=== PATIENT | female | born 1965 | race African-American/Black ===

== ENCOUNTER 2023-06-18 16:01 | Emergency (ER) | payer OTHER, SELFPAY ==
[2023-06-18 16:15] VITALS: BP 129/89; PULSE 86; RESP 20; TEMP 37.2; O2SAT 97; BMI 34.5
[2023-06-18 16:19] VITALS: BMI 34.5
--- NOTE | 2023-06-18 16:20 | XR_ITS ---
PROCEDURE INFORMATION: Exam: XR Left Foot Exam date and time: 06/18/2023 4:29 PM Age: 58 years old Clinical indication: Pain; Foot; Left; Additional info: Knot to heel area TECHNIQUE: Imaging protocol: Radiologic exam of the left foot. Views: 3 or more views. COMPARISON: No relevant prior studies available. FINDINGS: Bones/joints: Normal. Soft tissues: Normal. IMPRESSION: No acute findings.
--- NOTE | 2023-06-18 16:20 | XR_ITS ---
PROCEDURE INFORMATION: Exam: XR Right Foot Exam date and time: 06/18/2023 4:25 PM Age: 58 years old Clinical indication: Pain; Foot; Right TECHNIQUE: Imaging protocol: Radiologic exam of the right foot. Views: 3 or more views. COMPARISON: No relevant prior studies available. FINDINGS: Bones/joints: Normal. Soft tissues: Normal. IMPRESSION: No acute findings.
--- NOTE | 2023-06-18 16:25 | EXP.UTC ---
Discharge Plan Disposition Patient Disposition: Home, Self-Care Condition: Good Prescriptions Prescriptions: New methylprednisolone 4 mg Tablets,Dose Pack 4 mg PO DIRECTED Qty: 21 0RF Referrals Follow up/Referrals: Anca Cintron MD [Primary Care Provider] - See instructions My Camara DPM [Staff Physician] - See instructions Activity Restrictions/Add. Instructions Additional Instructions/Restrictions: Rest the extremity, Elevate the extremity as tolerated while you are resting. Take the medication as directed. Don't start the methylprednisone pack (steroids) until tomorrow since you had the shots here today. Follow up with Dr. Camara (podiatry). I put in a referral but you need to call her office and schedule an appointment. Follow up with your regular doctor. GO TO THE ER FOR ANY WORSENING SYMPTOMS Clinical Impressions Clinical Impression: Foot pain, right Stand Alone Forms Stand Alone Forms: Work/School Release Instructions Patient Instructions: DI for Foot Pain, How to Use a Walking Boot Discharge ED Provider: Terry Miranda [facility] General Stated complaint: right foot pain, left foot nodgul Time Seen by Provider: 06/18/23 16:25 History of Present Illness Provider Complaint: She states that she has had right foot pain for the past 3 days. She denies any injury. She states that walking and bearing weight on the foot makes her pain worse. Related Data Previous Rx's Medication Instructions Recorded methylprednisolone 4 mg tablets in 4 mg PO DIRECTED #21 tabs 06/18/23 a dose pack Allergies Allergy/AdvReac Type Severity Reaction Status Date / Time promethazine [From Phenergan] Allergy Verified 06/18/23 16:26 [facility] Disclaimer: The information contained in this section may have been updated after the patient was seen, as this information can be updated by other users. Social History Smoking Status: Never smoker alcohol intake: never current occupational status: employed Travel in the last 8 weeks: None ROS Obtained: Yes All systems reviewed & no additional complaints except as documented Constitutional Constitutional: Denies chills and Denies fever(s) Eyes Eyes: Denies eye discharge ENT Ears, Nose, Mouth, and Throat: Denies dizziness, Denies otalgia and Denies sore throat Cardiovascular Cardiovascular: Denies chest pain Respiratory Respiratory: Denies shortness of breath, Denies chest congestion, Denies cough, Denies stridor and Denies wheezing Gastrointestinal Gastrointestingal: Denies nausea or vomiting Musculoskeletal Musculoskeletal: Reports as per HPI Integumentary/Breasts Skin/Breast: Denies rash Neurologic Neurologic: Denies dizziness and Denies paresthesias Allergic/Immunologic Allergic/Immunologic: Denies wheezing Physical Exam General General appearance: alert and in no apparent distress Head Head exam: atraumatic, normocephalic and normal inspection Eye Eye exam: Present normal appearance, PERRL and EOMI ENT ENT exam: Present normal exam, normal oropharynx, mucous membranes moist, TM's normal bilaterally and normal external ear exam Neck Neck exam: Present normal inspection, full ROM and trachea midline; Absent meningismus or lymphadenopathy Chest Chest inspection: Present normal inspection and symmetric chest wall rise; Absent tenderness Respiratory Respiratory exam: Present normal lung sounds bilaterally; Absent respiratory distress Cardiovascular Cardiovascular exam: Present regular rate and normal rhythm; Absent JVD Abdominal Exam Abdominal exam: Present soft and normal bowel sounds; Absent distention, tenderness or guarding Extremities Exam Extremities exam: Present normal capillary refill; Absent calf tenderness Expanded Lower Extremity Exam Right: Lower leg exam: Present normal inspection and full ROM; Absent tenderness Ankle exam: Present normal inspection and full ROM; Absent tenderness Moshe
[2023-06-18 16:29] VITALS: BP 129/89; PULSE 86; RESP 20; TEMP 37.2; O2SAT 97
== END 2023-06-18 17:22 | disposition home or self-care (01) ==
PROVIDERS: Emergency Provider Nurse Practitioner Family; PCP Internal Medicine
DX: M79.671 Pain in right foot (principal)
CPT/HCPCS: 73630; 96372; 99204; 99212; G0463

== ENCOUNTER 2024-08-20 09:44 | Emergency (ER) | payer OTHER, SELFPAY ==
[2024-08-20] VITALS (9 sets, daily range): BP systolic 120–179; BP diastolic 67–95; PULSE 79–92; RESP 13–21; TEMP 36.6–37.1; O2SAT 97–99; BMI 35.5
--- NOTE | 2024-08-20 09:41 | ECG_ITS ---
APPROVED REPORT Exam: Resting ECG HR:92 bpm ECG Measurements Heart Rate 92 AXES DC 182 P 76 QRSd 93 QRS 75 QT 371 T 50 QTc 421 Conclusion SINUS RHYTHM LOW QRS VOLTAGE IN PRECORDIAL LEADS [QRS DEFLECTION < 1.0 mV IN CHEST LEADS] BORDERLINE ECG Electronically signed by : ALLAN KENYON, 08/20/2024 15:09:27
--- NOTE | 2024-08-20 09:48 | CT_ITS ---
PROCEDURE INFORMATION: Exam: CTA Chest With Contrast Exam date and time: 08/20/2024 10:24 AM Age: 59 years old Clinical indication: Pain; Chest pressure; Additional info: Cp to back TECHNIQUE: Imaging protocol: Computed tomographic angiography of the chest with contrast. Exam focused on the arteries. 3D rendering (Not supervised by radiologist): MIP and/or 3D reconstructed images were created by the technologist. Radiation optimization: All CT scans at this facility use at least one of these dose optimization techniques: automated exposure control; mA and/or kV adjustment per patient size (includes targeted exams where dose is matched to clinical indication); or iterative reconstruction. Contrast material: ISO 370; Contrast volume: 80 ml; Contrast route: INTRAVENOUS (IV); COMPARISON: No relevant prior studies available. FINDINGS: Pulmonary arteries: Main pulmonary trunk, right and left pulmonary arteries, interlobar branches and 1st order segmental branches are adequately opacified without filling defects or other evidence of acute pulmonary embolism. However more distal subsegmental branches cannot be adequately assessed due to technical limitations of the study. Aorta: Thoracic aorta is unremarkable. No evidence aortic aneurysm or dissection. Lungs: Unremarkable. No consolidation. No masses. Pleural spaces: Unremarkable. No pneumothorax. No pleural effusion. Heart: Heart is not significantly enlarged. No detectable coronary artery calcifications. No significant pericardial effusion. Lymph nodes: Unremarkable. No enlarged lymph nodes. Bones/joints: Unremarkable. No acute fracture. Soft tissues: Unremarkable. IMPRESSION: 1. Technically limited but negative CT angiogram of the chest. No evidence of acute pulmonary embolism to major branches of the pulmonary vascular tree. 2. No evidence of thoracic aortic aneurysm or dissectio she is n.
--- NOTE | 2024-08-20 09:49 | HMH.EDCP ---
Discharge Plan Disposition Patient Disposition: Home, Self-Care Chief Complaint: Chest Pain Prescriptions Prescriptions: No Action methylprednisolone 4 mg Tablets,Dose Pack 4 mg PO DIRECTED Qty: 21 0RF Referrals Follow up/Referrals: Anca Cintron MD [Primary Care Provider] - See instructions Jus Brown MD [Staff Physician] - See instructions Activity Restrictions/Add. Instructions Additional Instructions/Restrictions: At this time it was felt you are safe to be discharged home. If new or worsening symptoms please do not hesitate to return the emergency department. Please call and schedule appoint with Dr. Brown as soon as you are able. Clinical Impressions Clinical Impression: Chest pain Print Language Print Language: Yi Discharge ED Provider: Pelon Pack HPI General Chief Complaint: Chest Pain Stated Complaint: Chest pain Time Seen by Provider: 08/20/24 09:46 History of Present Illness HPI narrative: Patient is a 59-year-old female with no pertinent past medical history, does not see the doctor often does not take medicines at baseline who presents emergency department for evaluation of chest pain. Onset was acute, occurring last night prior to midnight, substernal, intermittently radiating through to her back. It got worse this morning while she was at work here causing her to present here for continued evaluation. No cardiac stent history, does not take cardiac medications or antihypertensives. No cough. No other acute complaints at this time. Related Data Previous Rx's ?Medication ?Instructions ?Recorded methylprednisolone 4 mg tablets in 4 mg PO DIRECTED #21 tabs 06/18/23 a dose pack Allergies Allergy/AdvReac Type Severity Reaction Status Date / Time promethazine [From Phenergan] Allergy Verified 06/18/23 16:26 [facility] Disclaimer: The information contained in this section may have been updated after the patient was seen, as this information can be updated by other users. Social History (Updated 06/18/23 @ 20:35 by Terry Miranda APRN) Smoking Status: Never smoker alcohol intake: never current occupational status: employed Travel in the last 8 weeks: None ROS Obtained: Yes Systems reviewed as appropriate & no additional complaints except as documented Physical Exam General General appearance: alert and in no apparent distress Head Head exam: atraumatic and normocephalic Eye Eye exam: Present PERRL and EOMI ENT ENT exam: Present mucous membranes moist Neck Neck exam: Present normal inspection Chest Chest inspection: Present normal inspection and symmetric chest wall rise Respiratory Respiratory exam: Present normal lung sounds bilaterally; Absent respiratory distress Cardiovascular Cardiovascular exam: Present regular rate and normal rhythm Abdominal Exam Abdominal exam: Present soft; Absent tenderness Extremities Exam Extremities exam: Present normal inspection Neurological Exam Neurological exam: Present alert Psychiatric Psychiatric exam: Present normal affect Skin Skin exam: Present warm and dry HEART Score HEART Score HEART Score assessment performed?: Yes History (anamnesis): Highly suspicious ECG: Normal Age: 45-65 years Risk factors: No known risk factors Troponin: </= normal limit HEART Score: 3 Critical Care Critical Care Time Critical Care Time: No Medical Decision Making Trevor Inquiry Pt receiving controlled substance: No Vital Signs Vital Signs: 08/20/24 09:45 08/20/24 10:00 08/20/24 11:00 Temperature 98.7 F Temperature Source Oral Pulse Rate 92 H 88 Pulse Rate [Left Radial] 89 Respiratory Rate 17 17 19 Blood Pressure 148/82 H 127/67 Blood Pressure [Right Arm] 179/95 H Blood Pressure Mean 104 96 Blood Pressure Mean [Right Arm] 123 Blood Pressure Source [Right Arm] Automatic Cuff Blood Pressure Position [Right Arm] Sitting 02 Sat by Pulse Oximetry 98 99 98 Oxygen Delivery Method Room Air Room Air Room Air 08/20/24 11:30 08/20/24 12:00 08/20/24 12:30 Temperature Temperature Source Pulse Rate 87 83 80 Pulse Rate [Left Radial] Respiratory Rate 19 17 13 Blood Pressure 128/77 121/76 120/76 Blood Pressure [Right Arm] Blood Pressure Mean 92 93 91 Blood Pressure Mean [Right Arm] Blood Pressure Source [Right Arm] Blood Pressure Position [Right Arm] 02 Sat by Pulse Oximetry 98 97 99 Oxygen Delivery Method Room Air Room Air Room Air Lab Data Labs: Lab Results 08/20/24 09:48: WBC 10.7, RBC 4.74, Hgb 14.2, Hct 43.2, MCV 91.3, MCH 29.9, MCHC 32.7, RDW 14.1, Plt Count 301, MPV 7.7, Neut % (Auto) 63.7, Lymph % (Auto) 28.4, [place] % (Auto) 4.8, Eos % (Auto) 2.1, Baso % (Auto) 0.9, Neut # (Auto) 6.8, Lymph # (Auto) 3.0, [place] # (Auto) 0.5, Eos # (Auto) 0.2, Baso # (Auto) 0.1, Sodium 141, Potassium 3.9, Chloride 106, Carbon Dioxide 28, Anion Gap 10.9, BUN 13, Creatinine 0.80, Estimated Creat Clear 121, Estimated GFR 74, Est GFR ( Amer) 89, Glucose 134 H, Calcium 9.3, Total Bilirubin 0.6, AST 29, ALT 25, Alkaline Phosphatase 95, Troponin I < 0.01, Total Protein 7.9, Albumin 4.5, Globulin 3.4 H, Albumin/Globulin Ratio 1.3, HIV 1&2 Antibody Rapid Nonreactive 08/20/24 12:45: Troponin I < 0.01 08/20/24 09:48 08/20/24 09:48 Response Orders (Tests/Meds): ED MEDICATIONS Generic Name Dose Route Start Last Admin Trade Name Freq PRN Reason Stop Dose Admin Nitroglycerin 0.4 mg 08/20/24 09:48 Nitroglycerin 0.4mg Sl Tablet SL 09/19/24 09:47 [id number] PRN Chest Pain Discontinued Medications Generic Name Dose Route Start Last Admin Trade Name Freq PRN Reason Stop Dose Admin Aspirin 324 mg 08/20/24 09:48 08/20/24 09:56 Aspirin 81mg Chewable Tablet PO 08/20/24 09:49 324 mg ONCE ONE Administration Iopamidol 80 ml 08/20/24 10:24 08/20/24 10:25 Iopamidol-370 (76%);100ml Bottle IV 08/20/24 10:25 80 ml ONCE ONE Administration Morphine Sulfate 4 mg 08/20/24 09:48 08/20/24 10:56 Morphine 4mg/Ml Syringe IV 08/20/24 09:49 Not Given ONCE ONE Ondansetron HCl 4 mg 08/20/24 09:48 08/20/24 10:56 Ondansetron 4mg Odt SL 08/20/24 09:49 Not Given ONCE ONE Sodium Chloride 50 ml 08/20/24 10:24 08/20/24 10:25 0.9 % Sodium Chloride 50 Ml Vial IV 08/20/24 10:25 50 ml ONCE ONE Administration Sodium Chloride 10 ml 08/20/24 10:24 08/20/24 10:25 Sodium Chloride 0.9% 10ml Syr (Rad Only) IV 08/20/24 10:25 10 ml ONCE ONE Administration ORDERS Category Date Time Status CT angio chest - dissection Stat Cat Scan 08/20/24 09:48 Completed CBC w/Auto Diff [Complete Blood Count Auto Diff] Stat Lab 08/20/24 09:48 Completed CMP [Comprehensive Metabolic Panel] Stat Lab 08/20/24 09:48 Completed HIV (1&2) Antibody Rapid Stat Lab 08/20/24 09:48 Completed Hep C Ab with Reflex to RNA Stat Lab 08/20/24 09:48 Received Trop I [Troponin I] Stat Lab 08/20/24 09:48 Completed Troponin I Q3H Lab 08/20/24 12:45 Completed Troponin I Q3H Lab 08/20/24 16:00 Ordered ECG Data Tracing #1: ECG Narrative: Independently interpreted by me rate is 92, rhythm is regular, axis is normal, no ST elevation in anatomical contiguous leads, QTc 421. MDM Narrative Medical Decision Narrative: In summary patient is a 59-year-old female past medical history described above who presents emergency department for evaluation of chest pain. Patient is hemodynamically stable and nontoxic-appearing upon arrival, appearing in pain, afebrile. Differential diagnosis includes ACS, aortic dissection, among others. Workup will be conducted with hematologic labs, CT angio chest protocol, EKG, serial troponins. Initial inventions include morphine, Zofran, aspirin, nitroglycerin. Initial workup reviewed by me, no significant leukocytosis or anemia, no FINESSE or critical electrolyte abnormality, initial troponin undetectably low. CTA chest no acute large pulmonary embolism, no aneurysm or dissection of the thoracic aorta. The patient was placed in observation status at 1:00 PM. Medical necessity for observational status is serial troponins repeat physical exams. The patient was provided serial reevaluations and cardiac monitoring while awaiting results. Results of testing during observation remarkable for serial troponins are undetectably low. On repeat evaluation patient had resolved chest pain and was well-appearing resting in bed. Given this I feel the patient is appropriate for expedited outpatient management at this time and will be referred to Dr. Brown.. Total time in observation was 28 minutes.
[2024-08-20] MEDS: ASPIRIN 81MG CHEWABLE TABLET 324 MG PO (09:56)
[2024-08-20 10:00] LABS: Basophils # 0.1 K/mm3 (0-0.2); Basophils % 0.9 % (0.1-2.0); Eosinophils # 0.2 K/mm3 (0.0-0.4); Eosinophils % 2.1 % (0.1-12.0); Hematocrit 43.2 % (37.0-47.0); Hemoglobin 14.2 g/dL (12.2-16.2); Lymphocytes % 28.4 % (10-50); Mean Corpuscular HGB Conc 32.7 g/dL (31.8-35.4); Mean Corpuscular Hemoglobin 29.9 pg (27.0-31.2); Mean Corpuscular Volume 91.3 fl (81-99); Mean Platelet Volume 7.7 fl (7.4-10.4); Monocytes # 0.5 K/mm3 (0.1-1.0); Monocytes % 4.8 % (1.7-9.3); Neutrophils # 6.8 K/mm3 (1.8-7.8); Neutrophils % 63.7 % (37.0-80.0); Platelet Count 301 K/mm3 (142-424); Red Blood Count 4.74 M/mm3 (4.20-5.40); Red Cell Distribution Width 14.1 % (11.5-17.5); White Blood Count 10.7 K/mm3 (4.8-10.8)
--- NOTE | 2024-08-20 10:00 | PC.NURSE ---
PT DECLINED MORPHINE AND ZOFRAN AT THIS TIME
[2024-08-20 10:05] LABS: Albumin Level 4.5 g/dl (3.5-5.0); Chloride 106 mmol/L (98-107); Sodium 141 mmol/L (136-145)
[2024-08-20 10:06] LABS: Potassium 3.9 mmoL/L (3.5-5.1)
[2024-08-20 10:08] LABS: Alanine Aminotransferase 25 U/L (12-78); Albumin/Globulin Ratio 1.3 (1.1-1.8); Alkaline Phosphatase 95 U/L (38-126); Anion Gap 10.9 mEq/L (5-15); Aspartate Amino Transferase 29 U/L (14-36); Bilirubin,Total 0.6 mg/dl (0.2-1.3); Blood Urea Nitrogen 13 mg/dl (7-17); Carbon Dioxide 28 mmol/L (22.0-30.0); Creatinine Clearance Estimated 121 mL/min (50-200); Estimated Glomerular Filt Rate 74 ml/min (>60); GFR (African American) 89 ML/MIN (>60); Globulin 3.4 g/dL (1.3-3.2); Total Protein,Serum 7.9 g/dl (6.3-8.2)
[2024-08-20 10:09] LABS: Calcium 9.3 mg/dl (8.4-10.2); Glucose 134 mg/dl (74-100)
[2024-08-20 10:21] LABS: Troponin I < 0.01 ng/ml (0.00-0.034)
[2024-08-20] MEDS: IOPAMIDOL-370 (76%);100ML BOTTLE 80 ML IV (10:25)
[2024-08-20] MEDS: SODIUM CHLORIDE 0.9% 10ML SYR (RAD ONLY) 10 ML IV (10:25)
[2024-08-20] MEDS: 0.9 % SODIUM CHLORIDE 50 ML VIAL IV (10:25)
--- NOTE | 2024-08-20 10:31 | PC.NURSE ---
Pt back in room from Rad
[2024-08-20 13:05] LABS: HIV (1&2) Antibody Rapid NONREACTIVE (NONREACTIVE)
[2024-08-20 13:21] LABS: Troponin I < 0.01 ng/ml (0.00-0.034)
[2024-08-21 05:56] LABS: HCV Ab Non Reactive (Non Reactive)
== END 2024-08-20 13:38 | disposition home or self-care (01) ==
PROVIDERS: Emergency Provider Emergency Medicine; PCP Internal Medicine
DX: R07.9 Chest pain, unspecified (principal)
CPT/HCPCS: 71275; 80053; 84484; 85025; 86803; 87389; 93005; 99285; Q9967

== ENCOUNTER 2024-08-26 09:51 | Outpatient (CLI) | payer OTHER, SELFPAY ==
[2024-08-26 10:49] LABS: Alanine Aminotransferase 18 U/L (12-78); Alkaline Phosphatase 90 U/L (38-126); Aspartate Amino Transferase 22 U/L (14-36); Bilirubin,Direct 0.2 mg/dl (0.0-0.4); Bilirubin,Indirect 0.2 mg/dL (0.0-0.9); Bilirubin,Total 0.4 mg/dl (0.2-1.3); Bilirubin,Unconjugated 0.2 mg/dL (0.0-1.1); Chol/HDL Ratio 2.2 (1-3.5); Cholesterol 170 mg/dl (140-200); HDL Cholesterol 76 mg/dl (40-60); Magnesium 1.7 mg/dl (1.6-2.3); Total Protein,Serum 6.7 g/dl (6.3-8.2); Triglycerides 86 mg/dl (30-150); VLDL Cholesterol 17 mg/dL (0-40)
[2024-08-26 11:01] LABS: Direct LDL Cholesterol 77.02 mg/dL (100-129)
[2024-08-26 11:07] LABS: Free Thyroxine Index 2.3 ug/dL (5.93-13.13); T4 (Thyroxine) 7.2 ug/dl (5.53-11.0); Triiodothryronine (T3) Uptake 32 % (23.5-40.5)
[2024-08-26 14:03] LABS: Hemoglobin A1C 6.1 % (4.0-6.0)
== END 2024-08-26 23:59 | disposition home or self-care (01) ==
PROVIDERS: Visit Provider Nurse Practitioner Family
DX: Z86.79 Personal history of other diseases of the circulatory system (principal); R00.2 Palpitations; R06.09 Other forms of dyspnea; R07.89 Other chest pain
CPT/HCPCS: 36415; 80061; 80076; 83036; 83735; 84436; 84443; 84479; 93270

== ENCOUNTER 2024-09-11 06:51 | Outpatient (CLI) | payer OTHER, SELFPAY ==
--- NOTE | 2024-09-11 | CA_ITS ---
APPROVED REPORT Exam: Exercise Treadmill Technologist: Danuta Harris Ht: 5 ft 5 in Wt: 223 lbs BSA: 2.07 m2 HR: 74 bpm BP: 137/77 mmHg Rhythm: Nsr, low voltage QRS Medical History Medications: Aspirin Allergies: Promethazine Cardiac Risk Factors: FHX of CAD Stress Test Details Test: Exercise stress testing was performed using a modified Ye protocol. HR Resting HR: 74 bpm Max Heart Rate (APMHR): 162.683225 bpm Max HR Achieved: 164 bpm Target HR (85% APMHR): 137.303643 bpm % of APMHR: 101.23 Recovery HR: 96 bpm BP Resting BP: 137.0/77.0 mmHg Max BP: 215.0/87.0 mmHg Recovery BP: 166.0/83.0 mmHg ECG Resting ECG: Nsr, low voltage QRS Clinical Highest Stage Achieved: Stage 2: 2.5 mph at 12% grade. Stress ECG Conclusion Pt exercised 5:00 on Ye protocol Max HR: 164 % of PM: 101% Max BP: 215/87 Mets: 7.1 Test stopped due to: soa, fatigue Pt had chest tightness with exercise Frequent PACs Allowing for motion artifact, the ST response to exercise appears within normal Chest pain with exercise without any ischemic EKG changes Myoview images reported separately Electronically signed by : Maddie Velazquez MD 09/14/2024 01:05:12
--- NOTE | 2024-09-11 07:02 | NM_ITS ---
APPROVED REPORT Exam: Nuclear Stress Test Indication: fm hx, chest oain, palpitations, fatigue Patient Location: Outpatient Stress Tech: Danuta Harris NC Tech:Mary Quintanilla PRUDENCIO RT (R)(N)(M) Ht: 5 ft 5 in Wt: 223 lbs Bra Size: 38ddd HR: 76 bpm BP: 154/89 mmHg BSA: 2.07 m2 TID: 1.10 BMI: 37.1 History: fm hx, chest oain, palpitations, fatigue Procedure: Patient exercised on Ye protocol 5:00 minutes and sec, resting heart rate 76 bpm, resting blood pressure 154/89 mmHg, with exercise maximum heart rate achived was 161 bpm which is 101 % of the maximum predicted heart rate and blood pressure was 210/90 mmHg. Test was stopped due to sob. Patient denied any complaint of chest pain. Patient has Average exercise capacity, achieved 7.1 METs of workload on treadmill, the blood pressure response to exercise was Exaggerated. Cardiac Stress and Resting SPECT Images: Cardiac Stress and Resting SPECT images were obtained using technetium 99m Myoview 30.2 mCi stress and 10.23 mCi at rest. Resting and stress imaging in supine and prone positions demonstrate no evidence of fixed or reversible perfusion defects. Gated image demonstrates normal global and regional LV systolic function. LVEF is calculated at > 75%. Conclusion: No evidence of fixed or reversible perfusion defects. Gated image demonstrates normal global and regional LV systolic function. LVEF is calculated at > 75%. Of note, the patient had an exaggerated BP response to exercise (max BP 210/90 mmHg). Aggressive BP control is recommended. Electronically signed by : Maddie Velazquez MD 09/14/2024 01:07:03
[2024-09-11] MEDS: SODIUM CHLORIDE 0.9% 10ML SYR (RAD ONLY) 10 ML IV ×2 (07:10→08:40)
--- NOTE | 2024-09-11 08:11 | CA_ITS ---
APPROVED REPORT EXAM: Comprehensive 2D, Doppler, and color-flow Echocardiogram Recreation Supervisor: Sheila Lombardi RDCS Ht: 5 ft 5 in Wt: 223lbs BSA: 2.07 BP: 138/72 mmHg Indications: CP,SVT,PALPS,TREJO M-Mode Dimensions RVDd 0.97 cm (0.9-2.6) LA Diam 2.98 cm (1.9-4.0) LVDd 4.63 cm (3.5-5.7) LVDs 3.34 cm (3.5-5.7) IVSd 0.93 cm (0.6-1.1) PWd 1.15 cm (0.6-1.1) EF (Teich) 54.00% FS 27.90% EDV (Teich) 98.80 mL ESV (Teich) 45.40 mL LV Diastology E Decel Time 140 (160-240 msec) E/A Ratio 1.1 Mitral Valve MV E Max Twin. 90.0 (40-130 cm/s) MV A Velocity 79.0 (40-130 cm/s) E/A Ratio 1.13 MV PHT 41.0 ms Left Ventricle The left ventricle is normal size. The left ventricular systolic function is normal. The left ventricular ejection fraction is within the normal range. There is increased LV wall thickness. There is normal LV segmental wall motion. The left ventricular diastolic function is normal. LVEF is 55%. Right Ventricle The right ventricle is mildly dilated. The right ventricular systolic function is normal. Atria The left atrium size is normal. The right atrium size is normal. There is no Doppler evidence of interatrial shunt. Aortic Valve The aortic valve is mildly thickened. There is no aortic valvular stenosis. No aortic regurgitation is present. Mitral Valve The mitral valve is normal in structure. No evidence of mitral valve stenosis. Trace mitral regurgitation. Tricuspid Valve The tricuspid valve leaflets are thin and pliable. Trace tricuspid regurgitation. There is insufficient TR jet to estimate RVSP. Pulmonic Valve The pulmonary valve is normal in structure. Trace pulmonic regurgitation. Great Vessels The aortic root is normal in size. The ascending aorta is normal in size. IVC is normal in size and collapses >50% with inspiration. Pericardium There is no pericardial effusion. Other Information Study Quality: Fair Conclusion Normal biventricular systolic function. No significant valvular stenosis or regurgitation. Electronically signed by : Maddie Velazquez MD 09/16/2024 09:11:42
[2024-09-11] MEDS: ISOTOPE MYOVIEW (PER STUDY) 1 DOSE IV (08:57)
== END 2024-09-11 23:59 | disposition home or self-care (01) ==
LOC: RAD 06:52
PROVIDERS: Visit Provider Nurse Practitioner Family
DX: R07.89 Other chest pain (principal); R00.2 Palpitations; R06.09 Other forms of dyspnea; Z86.79 Personal history of other diseases of the circulatory system
CPT/HCPCS: 78452; 93017; 93018; 93306; A9502

== ENCOUNTER 2025-04-07 12:32 | Outpatient (CLI) | payer OTHER, SELFPAY ==
--- NOTE | 2025-04-07 12:43 | XR_ITS ---
FINAL REPORT CLINICAL HISTORY: rt shoulder pain. no trauma FINDINGS: RIGHT SHOULDER Three views were obtained. There is no fracture or dislocation. There are mild hypertrophic changes of the AC joint. No soft tissue abnormality is identified. IMPRESSION: No acute process. Reviewed, Interpreted and Dictated by Roel Waterman MD Transcribed by Grisel Owusu Authenticated and [facility]
--- NOTE | 2025-04-07 12:43 | XR_ITS ---
FINAL REPORT CLINICAL HISTORY: Low back pain FINDINGS: PELVIS One view was obtained. There is no fracture or dislocation. The joint spaces appear normal. No soft tissue abnormality is identified. IMPRESSION: No acute process. Reviewed, Interpreted and Dictated by Roel Waterman MD Transcribed by Grisel Owusu Authenticated and [facility]
--- NOTE | 2025-04-07 12:43 | XR_ITS ---
FINAL REPORT CLINICAL HISTORY: Low back pain. no trauma FINDINGS: LUMBAR SPINE Three views were obtained. There is no acute fracture. There is minimal anterior osteophyte formation at L3-4 and L4-5. There is minimal spondylolisthesis of L4 on 5. Moderate facet sclerosis is noted in the lower lumbar spine. IMPRESSION: Degenerative changes as above. Reviewed, Interpreted and Dictated by Roel Waterman MD Transcribed by Grisel Owusu Authenticated and [facility]
[2025-04-07 14:14] LABS: Alanine Aminotransferase 19 U/L (12-78); Albumin Level 4.4 g/dl (3.5-5.0); Albumin/Globulin Ratio 1.5 (1.1-1.8); Alkaline Phosphatase 95 U/L (38-126); Anion Gap 7.7 mEq/L (5-15); Aspartate Amino Transferase 25 U/L (14-36); Bilirubin,Total 0.5 mg/dl (0.2-1.3); Blood Urea Nitrogen 11 mg/dl (7-17); Calcium 9.7 mg/dl (8.4-10.2); Carbon Dioxide 32 mmol/L (22.0-30.0); Chloride 102 mmol/L (98-107); Estimated Glomerular Filt Rate 86 ml/min (>60); GFR (African American) 104 ML/MIN (>60); Globulin 2.9 g/dL (1.3-3.2); Glucose 91 mg/dl (74-100); Potassium 4.7 mmoL/L (3.5-5.1); Sodium 137 mmol/L (136-145); Total Protein,Serum 7.3 g/dl (6.3-8.2)
[2025-04-07 14:28] LABS: Free T4 (Free Thyroxine) 1.03 ng/dl (0.78-2.19)
[2025-04-07 14:42] LABS: Thyroid Stimulating Hormone 1.77 uIU/mL (0.465-4.68)
[2025-04-07 15:18] LABS: Hemoglobin A1C 6.1 % (4.0-6.0)
== END 2025-04-07 23:59 | disposition home or self-care (01) ==
LOC: LAB 12:32
PROVIDERS: PCP Internal Medicine; Visit Provider Internal Medicine
DX: Z00.00 Encounter for general adult medical examination without abnormal findings (principal); Z13.29 Encounter for screening for other suspected endocrine disorder; Z13.1 Encounter for screening for diabetes mellitus; R73.03 Prediabetes; M54.50 Low back pain, unspecified; M25.511 Pain in right shoulder
CPT/HCPCS: 36415; 72100; 72170; 73030; 80053; 83036; 84439; 84443

== ENCOUNTER 2025-04-16 15:47 | Outpatient (CLI) | payer OTHER, SELFPAY ==
--- NOTE | 2025-04-16 16:00 | MM_ITS ---
PROCEDURE INFORMATION: Exam: MG Bilateral Screening 3D Mammography Exam date and time: 04/16/2025 3:51 PM Age: 60 years old Clinical indication: Screening examination TECHNIQUE: Imaging protocol: Bilateral Screening tomosynthesis and 2D mammography including computer-aided detection (CAD) when performed. COMPARISON: 1. MG MAMMOGRAPHY BREAST SCREENING TOMOSYNTHESIS BILATERAL 08/28/2023 1:43 PM 2. MG MAMMOGRAPHY BREAST SCREENING TOMOSYNTHESIS BILATERAL 06/08/2022 8:27 AM FINDINGS: MAMMOGRAPHY: Breast composition: There are scattered areas of fibroglandular density. Mass: None. Architectural distortion: None. Calcifications: No suspicious calcifications. Asymmetric density: None. Skin thickening: None. Axillary adenopathy: None. IMPRESSION: No mammographic evidence of malignancy. Annual screening is recommended unless otherwise clinically indicated. ASSESSMENT: BI-RADS Category 1: Negative.
== END 2025-04-16 23:59 | disposition home or self-care (01) ==
PROVIDERS: PCP Internal Medicine; Visit Provider Obstetrics & Gynecology
DX: Z12.31 Encounter for screening mammogram for malignant neoplasm of breast (principal); Z01.419 Encounter for gynecological examination (general) (routine) without abnormal findings; R92.323 Mammographic fibroglandular density, bilateral breasts
CPT/HCPCS: 77063; 77067

== ENCOUNTER 2025-07-25 14:04 | Emergency (ER) | payer OTHER, SELFPAY ==
[2025-07-25] VITALS (8 sets, daily range): BP systolic 140–162; BP diastolic 83–99; PULSE 72–89; RESP 14–18; TEMP 36.6–36.7; O2SAT 97–100; BMI 36.6
--- NOTE | 2025-07-25 14:02 | ECG_ITS ---
APPROVED REPORT Exam: Resting ECG HR:89 bpm ECG Measurements Heart Rate 89 AXES NE 198 P 59 QRSd 89 QRS 31 QT 349 T 24 QTc 396 Conclusion SINUS RHYTHM LOW QRS VOLTAGE IN PRECORDIAL LEADS [QRS DEFLECTION < 1.0 mV IN CHEST LEADS] POSSIBLE ANTERIOR MYOCARDIAL INFARCTION , PROBABLY OLD [30 ms Q WAVE IN V3/V4, OR R < 0.2 mV IN V4] BORDERLINE ECG UNCONFIRMED REPORT Electronically signed by : DOMINIC MARTINEZ, 07/26/2025 23:03:29
--- NOTE | 2025-07-25 14:21 | ED_ITS ---
Discharge Plan Disposition Patient Disposition: Home, Self-Care Condition: Good Prescriptions Prescriptions: No Action meloxicam 7.5 mg tablet See Rx Instructions .ROUTE .COMPLEX Qty: 90 3RF Dose Instruction: TAKE ONE TABLET BY MOUTH EVERY DAY Rx Instructions: TAKE ONE TABLET BY MOUTH EVERY DAY metformin 500 mg tablet See Rx Instructions .ROUTE .COMPLEX Qty: 180 3RF Dose Instruction: TAKE ONE TABLET BY MOUTH TWICE DAILY Rx Instructions: TAKE ONE TABLET BY MOUTH TWICE DAILY Referrals Follow up/Referrals: Jus Pena DO [Primary Care Provider, Family Practice] - See instructions Jus Brown MD [Staff Physician, Cardiology] - See instructions Activity Restrictions/Add. Instructions Additional Instructions/Restrictions: Please follow-up with cardiology outpatient for your chest pain. Return to the emergency department for any acute or worsening symptoms. Clinical Impressions Clinical Impression: Chest pain Print Language Print Language: Danish Discharge ED Provider: Adis Clark General Adult HPI <Adis Clark MD - Last Filed: 07/25/25 14:34> General Chief complaint: Chest Pain Stated complaint: Chest Pain Time Seen by Provider: 07/25/25 14:27 Mode of Arrival: Ambulatory Source of Information: Patient Description of Symptoms (Recalled from ER Triage Doc. by RN): patient states lastnight she began having right sided chest pain that is intermittent and radiates to her right arm and in between shoulder blades. she describes pain as throbbing. 10/10 when it comes. she has also felt weak and fatigued today History of Present Illness HPI narrative: [place] is a 60-year-old female presenting today with chest discomfort. States this is been ongoing since last night but has been intermittent. Located in the right aspect of her anterior chest and radiating into her right arm. Not exertional but does have some exacerbation with any type of movement. States that she has been diagnosed with arthritis in the past and initially thought that is what this is but the pain did not resolve. No significant dyspnea associate with this. She has been weak and fatigued today while at work. States she had a stress test several years ago and was seen at cardiology but never had a subsequent heart cath. To her knowledge this was not abnormal. No diagnosed heart or lung problems. Related Data Previous Rx's ?Medication ?Instructions ?Recorded meloxicam 7.5 mg tablet See Rx Instructions .Route 0 07/01/25 .COMPLEX #90 tabs metformin 500 mg tablet See Rx Instructions .Route 0 07/08/25 .COMPLEX #180 tabs Allergies Allergy/AdvReac Type Severity Reaction Status Date / Time promethazine (From Phenergan) Allergy Verified 04/14/25 10:11 [facility] <Adis Clark MD - Last Filed: 07/25/25 14:34> PFS Disclaimer: The information contained in this section may have been updated after the patient was seen, as this information can be updated by other users. Surgical History History of partial hysterectomy Family History Mother Cancer Kidney disease COPD (chronic obstructive pulmonary disease) Coronary artery disease Hypertension Anemia Father Cancer Prostate Coronary artery disease Diabetes Borderline Hypertension Social History Smoking Status: Never smoker alcohol intake: never current occupational status: employed Travel in the last 8 weeks?: None Have you lived/traveled outside [place] in past 30 days?: No Contact w/someone who lives/traveled outside US past 30 days?: No Exposure to someone with infectious disease in past 14 days?: No Do you have a fever (greater than 100.4 F or 38 C)?: No Have you tested positive for COVID-19?: No Exposed to someone with COVID-19 in past 14 days?: No Do you have a sore throat?: No Do you have a cough?: No Do you have any weakness?: No Do you have any diarrhea?: No Are you experiencing any unusual bleeding?: No Do you have any muscle aches/pain?: No Do you have any abdominal pain?: No Are you experiencing loss of taste or smell?: No <Adis Clark MD - Last Filed: 07/25/25 14:34> ROS Obtained: Yes All systems reviewed & no additional complaints except as documented Physical Exam <Adis Clark MD - Last Filed: 07/25/25 14:34> General General appearance: alert and in no apparent distress Respiratory Respiratory exam: Present normal lung sounds bilaterally Cardiovascular Cardiovascular exam: Present regular rate; Absent normal rhythm Abdominal Exam Abdominal exam: Present soft; Absent distention or tenderness Neurological Exam Neurological exam: Present alert and oriented X3 Medical Decision Making <Adis Clark MD - Last Filed: 07/25/25 14:34> Medical Records Screening: Per USPSTF and CDC recommendations, given the prevalence of disease in our region, it is our hospital?s policy to screen for HIV and viral Hepatitis for all patients aged 18 and over and those with ongoing risk factors. Trevor Inquiry Pt receiving controlled substance: No Vital Signs: 07/25/25 14:07 07/25/25 15:00 07/25/25 15:30 Temperature 98 F Temperature Source Oral Pulse Rate 83 83 Pulse Rate [Right Radial] 89 Respiratory Rate 17 17 Blood Pressure 151/85 H 142/83 H Blood Pressure [Right Arm] 162/99 H Blood Pressure Mean [Right Arm] 120 Blood Pressure Source Blood Pressure Source [Right Arm] Automatic Cuff Blood Pressure Position Blood Pressure Position [Right Arm] Supine 02 Sat by Pulse Oximetry 98 97 97 Oxygen Delivery Method Room Air Room Air 07/25/25 16:00 07/25/25 16:30 07/25/25 17:00 Temperature Temperature Source Pulse Rate 81 83 72 Pulse Rate [Right Radial] Respiratory Rate 15 18 14 Blood Pressure 149/91 H 144/84 H 144/85 H Blood Pressure [Right Arm] Blood Pressure Mean [Right Arm] Blood Pressure Source Blood Pressure Source [Right Arm] Blood Pressure Position Blood Pressure Position [Right Arm] 02 Sat by Pulse Oximetry 99 98 99 Oxygen Delivery Method Room Air Room Air Room Air 07/25/25 17:53 07/25/25 18:00 Temperature 98 F 98.1 F Temperature Source Oral Pulse Rate 72 75 Pulse Rate [Right Radial] Respiratory Rate 14 15 Blood Pressure 140/89 140/89 Blood Pressure [Right Arm] Blood Pressure Mean [Right Arm] Blood Pressure Source Automatic Cuff Blood Pressure Source [Right Arm] Blood Pressure Position Supine Blood Pressure Position [Right Arm] 02 Sat by Pulse Oximetry Oxygen Delivery Method Room Air Lab Data Lab Results 07/25/25 14:11: WBC 9.9, RBC 4.68, Hgb 13.6, Hct 42.6, MCV 91.0, MCH 29.1, MCHC 31.9, RDW 14.6, Plt Count 225, MPV 11.5 H, Neut % (Auto) 57.6, Lymph % (Auto) 32.7, Hill % (Auto) 6.0, Eos % (Auto) 2.6, Baso % (Auto) 0.6, Neut # (Auto) 5.7, Lymph # (Auto) 3.3, Hill # (Auto) 0.6, Eos # (Auto) 0.3, Baso # (Auto) 0.1, D- Dimer 0.56 H, Sodium 142, Potassium 3.8, Chloride 103, Carbon Dioxide 29, Anion Gap 13.8, BUN 13, Creatinine 0.80, Estimated Creat Clear 119, Estimated GFR 73, Est GFR ( Amer) 89, Glucose 110 H, Calcium 8.9, Total Bilirubin 0.2, AST 25, ALT 18, Alkaline Phosphatase 101, Troponin I < 0.01, Total Protein 7.4, Albumin 4.2, Globulin 3.2, Albumin/Globulin Ratio 1.3, Lipase 149 07/25/25 16:23: Troponin I < 0.01 07/25/25 14:11 07/25/25 14:11 Orders (Tests/Meds): ED MEDICATIONS Discontinued Medications Generic Name Dose Route Start Last Admin Trade Name Freq PRN Reason Stop Dose Admin Aspirin 324 mg 07/25/25 14:27 07/25/25 14:35 Aspirin 81mg Chewable Tablet PO 07/25/25 14:28 324 mg ONCE ONE Administration ORDERS Category Date Time Status CXR --portable [XR chest portable] Stat Exams 07/25/25 14:27 Completed Complete Blood Count Auto Diff Stat Lab 07/25/25 14:11 Completed Comprehensive Metabolic Panel Stat Lab 07/25/25 14:11 Completed D-Dimer Stat Lab 07/25/25 14:11 Completed Lipase Stat Lab 07/25/25 14:11 Completed Troponin I Q3H Lab 07/25/25 16:23 Completed Troponin I Stat Lab 07/25/25 14:11 Completed ECG Data Tracing #1: I reviewed this ECG and interpreted as documented below: Ventricular rate of 89 normal sinus rhythm no acute ischemic changes noted there is low voltage in the precordial leads nonspecific no significant conduction abnormalities noted normal axis Medical Decision Narrative: 60-year-old with above history and physical initial EKG does not demonstrate a STEMI or anything emergently actionable. Will obtain a chest x-ray serial troponins given the intermittent component she will be placed in ED ops assuming the initial workup is negative. Given her age cannot use pulmonary embolism rule out criteria and will utilize a cutoff of a D-dimer of 1.0 with years criteria to obtain a CT PE. Pulmonary bliss remains on the differential as to other pathology such as pneumothorax pneumonia esophageal abnormalities costochondritis etc. Aspirin has been administered care will be transitioned to Dr. Sherwood at 3 PM for serial troponins <Marbella Sherwood, DO - Last Filed: 07/27/25 03:09> Vital Signs: 07/25/25 14:07 07/25/25 15:00 07/25/25 15:30 Temperature 98 F Temperature Source Oral Pulse Rate 83 83 Pulse Rate [Right Radial] 89 Respiratory Rate 17 17 Blood Pressure 151/85 H 142/83 H Blood Pressure [Right Arm] 162/99 H Blood Pressure Mean [Right Arm] 120 Blood Pressure Source Blood Pressure Source [Right Arm] Automatic Cuff Blood Pressure Position Blood Pressure Position [Right Arm] Supine 02 Sat by Pulse Oximetry 98 97 97 Oxygen Delivery Method Room Air Room Air 07/25/25 16:00 07/25/25 16:30 07/25/25 17:00 Temperature Temperature Source Pulse Rate 81 83 72 Pulse Rate [Right Radial] Respiratory Rate 15 18 14 Blood Pressure 149/91 H 144/84 H 144/85 H Blood Pressure [Right Arm] Blood Pressure Mean [Right Arm] Blood Pressure Source Blood Pressure Source [Right Arm] Blood Pressure Position Blood Pressure Position [Right Arm] 02 Sat by Pulse Oximetry 99 98 99 Oxygen Delivery Method Room Air Room Air Room Air 07/25/25 17:53 07/25/25 18:00 Temperature 98 F 98.1 F Temperature Source Oral Pulse Rate 72 75 Pulse Rate [Right Radial] Respiratory Rate 14 15 Blood Pressure 140/89 140/89 Blood Pressure [Right Arm] Blood Pressure Mean [Right Arm] Blood Pressure Source Automatic Cuff Blood Pressure Source [Right Arm] Blood Pressure Position Supine Blood Pressure Position [Right Arm] 02 Sat by Pulse Oximetry Oxygen Delivery Method Room Air Lab Data Lab Results 07/25/25 14:11: WBC 9.9, RBC 4.68, Hgb 13.6, Hct 42.6, MCV 91.0, MCH 29.1, MCHC 31.9, RDW 14.6, Plt Count 225, MPV 11.5 H, Neut % (Auto) 57.6, Lymph % (Auto) 32.7, Hill % (Auto) 6.0, Eos % (Auto) 2.6, Baso % (Auto) 0.6, Neut # (Auto) 5.7, Lymph # (Auto) 3.3, Hill # (Auto) 0.6, Eos # (Auto) 0.3, Baso # (Auto) 0.1, D- Dimer 0.56 H, Sodium 142, Potassium 3.8, Chloride 103, Carbon Dioxide 29, Anion Gap 13.8, BUN 13, Creatinine 0.80, Estimated Creat Clear 119, Estimated GFR 73, Est GFR ( Amer) 89, Glucose 110 H, Calcium 8.9, Total Bilirubin 0.2, AST 25, ALT 18, Alkaline Phosphatase 101, Troponin I < 0.01, Total Protein 7.4, Albumin 4.2, Globulin 3.2, Albumin/Globulin Ratio 1.3, Lipase 149 07/25/25 16:23: Troponin I < 0.01 Orders (Tests/Meds): ED MEDICATIONS Discontinued Medications Generic Name Dose Route Start Last Admin Trade Name Freq PRN Reason Stop Dose Admin Aspirin 324 mg 07/25/25 14:27 07/25/25 14:35 Aspirin 81mg Chewable Tablet PO 07/25/25 14:28 324 mg ONCE ONE Administration ORDERS Category Date Time Status CXR --portable [XR chest portable] Stat Exams 07/25/25 14:27 Completed Complete Blood Count Auto Diff Stat Lab 07/25/25 14:11 Completed Comprehensive Metabolic Panel Stat Lab 07/25/25 14:11 Completed D-Dimer Stat Lab 07/25/25 14:11 Completed Lipase Stat Lab 07/25/25 14:11 Completed Troponin I Q3H Lab 07/25/25 16:23 Completed Troponin I Stat Lab 07/25/25 14:11 Completed Medical Decision Narrative: 60-year-old with above history and physical initial EKG does not demonstrate a STEMI or anything emergently actionable. Will obtain a chest x-ray serial troponins given the intermittent component she will be placed in ED ops assuming the initial workup is negative. Given her age cannot use pulmonary embolism rule out criteria and will utilize a cutoff of a D-dimer of 1.0 with years criteria to obtain a CT PE. Pulmonary bliss remains on the differential as to other pathology such as pneumothorax pneumonia esophageal abnormalities costochondritis etc. Aspirin has been administered care will be transitioned to Dr. Sherwood at 3 PM for serial troponins. Marbella Sherwood DO I assumed care of the patient at 1500. Patient's labs were reviewed and interpreted by myself: CBC showed no leukocytosis, hemoglobin is stable. CMP was unremarkable. D-dimer negative by years criteria. Initial troponin less than 0.01, second troponin less than 0.01. Chest x-ray was reviewed and interpreted by myself and showed no acute focal consolidation, pneumothorax pleural effusion or other acute cardiopulmonary process. After repeat troponin was obtained, patient stated that her chest pain had completely resolved. At this time given low heart score I felt patient was appropriate for outpatient cardiology follow-up. Patient was discharged home in stable condition return precautions were discussed. Critical Care <Adis Clark MD - Last Filed: 07/25/25 14:34> Critical Care Time Critical Care Time: No
--- NOTE | 2025-07-25 14:27 | XR_ITS ---
PROCEDURE INFORMATION: Exam: XR Chest Exam date and time: 07/25/2025 2:43 PM Age: 60 years old Clinical indication: Dyspnea TECHNIQUE: Imaging protocol: Radiologic exam of the chest. Views: 1 view. COMPARISON: CT ANGIO CHEST 08/20/2024 10:24 AM FINDINGS: Lungs: Unremarkable. No consolidation. Pleural spaces: Unremarkable. No pleural effusion. No pneumothorax. Heart/Mediastinum: Unremarkable. No cardiomegaly. Bones/joints: Unremarkable. IMPRESSION: No acute findings.
[2025-07-25] MEDS: ASPIRIN 81MG CHEWABLE TABLET 324 MG PO (14:35)
[2025-07-25 14:43] LABS: Hematocrit 42.6 % (37.0-47.0); Hemoglobin 13.6 g/dL (12.2-16.2); Immature Granulocytes % 0.5 %; Mean Corpuscular HGB Conc 31.9 g/dL (31.8-35.4); Mean Corpuscular Hemoglobin 29.1 pg (27.0-31.2); Mean Corpuscular Volume 91.0 fl (81-99); Nucleated Red Blood Cells % 0 %; Platelet Count 225 K/mm3 (142-424); Red Blood Count 4.68 M/mm3 (4.20-5.40); Red Cell Distribution Width-SD 48.6 fL; White Blood Count 9.9 K/mm3 (4.8-10.8)
[2025-07-25 14:46] LABS: Alanine Aminotransferase 18 U/L (12-78); Albumin Level 4.2 g/dl (3.5-5.0); Albumin/Globulin Ratio 1.3 (1.1-1.8); Alkaline Phosphatase 101 U/L (38-126); Anion Gap 13.8 mEq/L (5-15); Aspartate Amino Transferase 25 U/L (14-36); Bilirubin,Total 0.2 mg/dl (0.2-1.3); Blood Urea Nitrogen 13 mg/dl (7-17); Calcium 8.9 mg/dl (8.4-10.2); Carbon Dioxide 29 mmol/L (22.0-30.0); Chloride 103 mmol/L (98-107); Creatinine Clearance Estimated 119 mL/min (50-200); Creatinine,Serum 0.80 mg/dl (0.52-1.04); Estimated Glomerular Filt Rate 73 ml/min (>60); GFR (African American) 89 ML/MIN (>60); Globulin 3.2 g/dL (1.3-3.2); Glucose 110 mg/dl (74-100); Lipase 149 U/L (23-300); Potassium 3.8 mmoL/L (3.5-5.1); Sodium 142 mmol/L (136-145); Total Protein,Serum 7.4 g/dl (6.3-8.2)
[2025-07-25 14:50] LABS: D-Dimer 0.56 ug/mL (0.0-0.5)
[2025-07-25 14:59] LABS: Troponin I < 0.01 ng/ml (0.00-0.034)
[2025-07-25 17:24] LABS: Troponin I < 0.01 ng/ml (0.00-0.034)
== END 2025-07-25 18:01 | disposition home or self-care (01) ==
PROVIDERS: Emergency Provider Student in an Organized Health Care Education/Training Program; PCP Internal Medicine
DX: R07.9 Chest pain, unspecified (principal); R53.83 Other fatigue
CPT/HCPCS: 71045; 80053; 83690; 84484; 85025; 85378; 93005; 99284; 99285

== ENCOUNTER 2025-08-04 13:53 | Outpatient (CLI) | payer OTHER, SELFPAY ==
--- NOTE | 2025-08-04 13:56 | XR_ITS ---
FINAL REPORT CLINICAL HISTORY: RUE numbness and tingling FINDINGS: CERVICAL SPINE 5 views were obtained. There is no prior exam for comparison. There is straightening of the cervical lordosis which can be seen with spasm or strain. There is no acute fracture or acute malalignment. Multilevel degenerative disc disease is most pronounced at C5-6 and C6-7. Precervical soft tissues are unremarkable. IMPRESSION: Degenerative changes without acute bony abnormality. Straightening of the cervical lordosis can be seen with spasm or strain. Reviewed, Interpreted and Dictated by Cari Hernández MD Transcribed by Rose Mayen Authenticated and [facility]
== END 2025-08-04 23:59 | disposition home or self-care (01) ==
LOC: RAD 13:54
PROVIDERS: PCP Nurse Practitioner Family; Visit Provider Nurse Practitioner Family
DX: M47.812 Spondylosis without myelopathy or radiculopathy, cervical region (principal); M53.82 Other specified dorsopathies, cervical region
CPT/HCPCS: 72050

== ENCOUNTER 2025-08-25 06:57 | Outpatient (CLI) | payer OTHER, SELFPAY ==
--- OUTSIDE RECORDS SUMMARY | 2025-07-27 23:29 | XMS_ITS | Encounter Summary ---
Author Organization [facility] Address [address] [place] [address] Care Team Providers Care Nematologist Name Role Phone Pcp, No Primary Care Provider Unavailabl e Reason for Referral * Consultation (Routine) - Authorized Specialty Diagnoses / Procedures Referred By Contac t Referred To Contact Cardiology Diagnoses Chest pain, unspecified type Mario Barron MD [address] [place] [address] Phone: tel: fax: Referral ID Status Reason Start Date Expiration Date Visits Requested Visits Authorized [id number] Authorized Specialty Services Required 07/28/2025 01/27/2027 1 1 * Consultation (Routine) - Authorized Specialty Diagnoses / Procedures Referred By Contac t Referred To Contact Neurosurgery Diagnoses Radicular pain in right arm Mario Barron MD [address] [place] [address] Phone: tel: fax: [facility] [address], [address] [place] [address] Phone: tel: fax: Referral ID Status Reason Start Date Expiration Date Visits Requested Visits Authorized [id number] Authorized Specialty Services Required 07/28/2025 01/27/2027 1 1 Reason for Visit * Reason Comments Chest Pain Encounter Details Date Type Department Care Team (Late st Contact Info) Description 07/27/2025 11:29 PM EDT - 07/28/2025 4:26 AM EDT [facility] [address] [place] [address] Mario Barron MD [address] [place] [address] Chest pain, unspecified type (Primary Dx); Radicular pain in right arm Discharge Disposition: Home or Self Care Social History Tobacco Use Types Packs/Day Years Used Date Smoking Tobacco: Never Passive Smoke Exposure: Never Smokeless Tobacco: Never Alcohol Use Standard Drinks/Week Comments Never 0 (1 standard drink = 0.6 oz pure alcohol) Alcoholic Drinks/day: Never Drank Alcohol Humiliation, Afraid, Rape, and Kick questionnair e Answer Date Recorded Within the last year, have y ou been afraid of your partner or ex-partner? No 04/10/2024 Within the last year, have y ou been humiliated or emotionally abused in other ways by your partner or ex-partner? No Within the last year, have y ou been kicked, hit, slapped, or otherwise physically hurt by your partner or ex-partner? No 04/10/2024 Within the last year, have y ou been raped or forced to have any kind of sexual activity by your partner or ex-partner? No 04/10/2024 PHQ-2 Answer Date Recorded Patient Health Questionnaire-2 Score 0 05/12/2024 Hunger Vital Sign Answer Date Recorded Within the past 12 months, y ou worried that your food would run out before you got the money to buy more. Never true 04/10/20 24 Within the past 12 months, t he food you bought just didn't last and you didn't have money to get more. Never true 04/10/2024 PRAPARE - Transportation Answer Date Re corded In the past 12 months, has l ack of transportation kept you from medical appointments or from getting medications? No 03/28 In the past 12 months, has l ack of transportation kept you from meetings, work, or from getting things needed for daily living? No 04/10/2024 Housing Stability Vital Sign Answer Kvng e Recorded In the last 12 months, was t here a time when you were not able to pay the mortgage or rent on time? No 04/10/2024 In the last 12 months, how many places have you lived? 2 04/10/2024 In the last 12 months, was t here a time when you did not have a steady place to sleep or slept in a alf (including now)? No 04/10/2024 AUDIT-C Answer Date Recorded Q1: How often do you have a drink containing alcohol? Never 07/27/2025 Q2: How many drinks containi ng alcohol do you have on a typical day when you are drinking? Patient does not drink Q3: How often do you have si x or more drinks on one occasion? Never 07/27/2025 Utilities Answer Date Recorded In the past 12 months has th e [employer], [employer], oil, or water company threatened to shut off services in your home? No 04/10/2024 PHQ-2A Answer Date Recorded Patient Health Questionnaire-2 Score 0 09/25/2023 Comments No Sex and Gender Information Value Date Recorded Sex Assigned at Not on file Legal Sex Female 8:54 PM EDT Gender Identity Not on file Sexual Orientation Not on file documented as of this encounter Last Filed Vital Signs Vital Sign Reading Time Taken Comments Blood Pressure 113/78 07/28/2025 3:02 AM EDT Pulse 77 07/28/2025 3:46 AM EDT Temperature 36.8 C (98.3 F) 07/28/2025 3:02 AM EDT Respiratory Rate 16 07/28/2025 3:46 AM EDT Oxygen Saturation 97% 07/28/2025 3:02 AM EDT Inhaled Oxygen Concentration - - Weight 101 kg (222 lb) 07/27/2025 9:54 PM EDT Height 165.1 cm (5' 5 ) 07/27/2025 9:54 PM EDT Body Mass Index 36.94 07/27/2025 9:54 PM EDT documented in this encounter Functional Status * AUDIT-C Score Answer Date of Assessment Author 0 07/27/2025 9:53 PM EDT Norma Juarez RN * Question Answer Date of Assessment Author Q1: How often do you have a drink containing alcohol? Never 07/27/2025 9:53 PM EDT Norma Juarez RN Q2: How many drinks containing alcohol do you have on a typical day when you are drinking? Patient does not drink 07/27/2025 9:53 PM EDT Norma Juarez RN Q3: How often do you have six or more drinks on one occasion? Never 07/27/2025 9:53 PM EDT Norma Juarez RN * Calculated C-SSRS Risk Score (Lifetime/Recent) Answer Date of Assessment Author No Risk Indicated 07/27/2025 11:57 PM EDT Cristina Gudino RN * Question Answer Date of Assessment Author 1. Wish to be (Past 1 Month) No 025 11:57 PM EDT Cristina Gudino RN 2. Non-Specific Active Suici óscar Thoughts (Past 1 Month) No 07/27/2025 11:57 PM EDT Cristina Gudino RN 6. Suicidal Behavior (Lifetime) No 11:57 PM EDT Cristina Gudino RN documented as of this encounter Discharge Instructions * Discharge Instructions* Sachin Jolley MD - 07/28/2025 4:02 AM EDT Follow up with [facility] for continued management of symptoms. You can use lidocaine patches, robaxin, Tylenol, and ibuprofen for pain control at home. Please return to ED if your symptoms worsen, change in location, change in severity, new symptoms develop or if you become concerned for your health. documented in this encounter Medications at Time of Discharge cholecalciferol (Vitamin D3) 125 MCG (5000 UT) capsule Take 5,000 Units by mouth 1 (one) time each day. diclofenac (Voltaren) 1 % topical gel Place 1-2 g on the skin 2 (two) times a day. Apply as directed to joint for pain. 100 g 3 05/12/2024 lidocaine (Lidoderm) 5 % patch Apply 1 patch topically daily over 12 hours. Remove & discard patch within 12 hours or as directed by . 10 patch 07/28/2025 methocarbamol (Robaxin) 500 MG tablet Take 1 tablet by mouth 4 times a day as needed for muscle spasms. 40 tablet 07/28/2025 polyethylene glycol (Golytely) 236 g solution See pharmacy notes for patient label instructions 4000 mL 01/03/2024 documented as of this encounter Miscellaneous Notes * ED Provider Notes - Sachin Jolley MD - 07/27/2025 9:48 PM EDT Images from the original note were not included. - HPI Chief Complaint Patient presents with Chest Pain 60 y.o female w/ PMHx of SVT who presents with chest pain and right arm pain. She reports that while at work yesterday she started having pain her upper back/neck. 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 She reports numbness and tinging in right arm, like her arm is asleep. She reports no similar symptoms in the past. Denies fever, nausea, vomiting, abdominal pain, SOB. Patient History Past Medical History[1] Surgical History[2] Family History[3] Social History[4] Allergies: Allergies[5] Physical Exam ED Triage Vitals [07/27/25 2154] Temp Heart Rate Resp BP 37.1 ??C (98.8 ??F) 84 20 (!) 163/94 SpO2 Temp Source Heart Rate Source Patient Position 96 % Oral Monitor Sitting BP Location FiO2 (%) Right arm -- Physical Exam Constitutional: General: She is not in acute distress. Appearance: She is not ill-appearing. HENT: Head: Normocephalic and atraumatic. Cardiovascular: Rate and Rhythm: Normal rate and regular rhythm. Pulmonary: Effort: Pulmonary effort is normal. Breath sounds: Normal breath sounds. No wheezing, rhonchi or rales. Abdominal: Palpations: Abdomen is soft. Tenderness: There is no abdominal tenderness. There is no guarding. Musculoskeletal: Cervical back: Normal range of motion. Skin: General: Skin is warm and dry. Neurological: Mental Status: She is alert and oriented to person, place, and time. GCS: GCS eye subscore is 4. GCS verbal subscore is 5. GCS motor subscore is 6. Cranial Nerves: Cranial nerves 2-12 are intact. Sensory: Sensory deficit (Numbness in RUE) present. Motor: Motor function is intact. Comments: No weakness in RUE. Psychiatric: Mood and Affect: Mood normal. Radha Coma Scale Score: 15 ED Course & MDM - Assessment: 60 y.o. female presents to ED with complaint of right arm and chest pain. Differential Diagnosis: acute coronary syndrome, pulmonary embolism, pneumothorax, pneumonia, gastroesophageal reflux, esophageal rupture, costochondritis, panic attack, and referred pain, radicular pain, others In order to fully explore the differential diagnosis the following treatments and tests were ordered: All Other Orders Ordered Status Ordering Provider 07/28/25 0137 PROCEDURE ONCE Canceled OLIVA EK A 07/28/25 010 D-Dimer, Quantitative STAT Final result OLIVA SANDEEP Foreman 07/28/25 0107 XR Chest 1 View One time imaging Final result OLIVA PAMMARISSA Foreman 07/27/25 2329 Troponin now and 120 min STAT Final result OLIVA ABEK Kellen 07/28/25 0401 Discharge Ambulatory referral to Spine Surgery Ordered SACHIN JOLLEY 07/28/25 0401 Discharge Ambulatory referral to Cardiology Ordered SACHIN JOLLEY 07/27/25 2329 Once Canceled OLIVA EK A 07/27/25 2329 CBC with Diff STAT Final result OLIVA ABEK A 07/27/25 2329 BMP STAT Final result OLIVA ABEK A 07/27/25 2329 Test Qualitative Plasma STAT Final result OLIVA ABEK A 07/27/25 2329 Hepatitis C Antibody - ED Once Final result MARIO BARRON A 07/27/25 2329 ED Protocol - HIV 1/2 Antibody/Antigen Screen Once Final result OLIVA ABEK A 07/27/25 2329 ED HIV 1/2 Antibody/Antigen Screen w/Reflex to HIV 1/2 Differentiation PROCEDURE ONCE Final result MARIO BARRON 07/27/25 2155 EKG now - STAT (adult) Once Final result MARIO BARRON ED Course as of 07/28/251827 Wed Jul 28, [id number] CBC with Diff Unremarkable [TV] 0333 Test: Negative Negative [TV] 0333 Troponin T, High Sensitivity, 0 Hour: <6 Les than 6. Will d/c 2hr trop [TV] 0333 BMP(!) Mildly elevated glucose [TV] 0333 D Dimer, Quantitative: 0.37 Low suspicion for PE [TV] 0334 XR was personally interpreted and I do not appreciate any obvious consolidations or pneumothorax. Radiology read in agreement and also adds no acute cardiopulmonary findings. Please see full radiology report for full details. [TV] 0335 EKG now - STAT (adult) ECG read by me demonstrates normal sinus rhythm, no WI prolongation, narrow QRS, no QT prolongation, no ST elevation or deviation. No overt signs of ischemia or arrhythmia. [TV] ED Course User Index [TV] Sachin Jolley MD Clinical Impressions as of 07/28/251827 Chest pain, unspecified type Radicular pain in right arm Social Determinates of Health Risks (including Economic Stability, Education and level of understanding, Healthcare access and quality and concerning social factors): None identified on this visit On initial evaluation, patient is hemodynamically stable. Patient reports onset of right sided neckpain extending in her right arm and down into her right chest. She reports onset of symptoms while at work with no trauma or inciting event. She reports numbness and tinging in her right arm. She reports symptoms have worsened, which is why she presents today. On exam, patient has decreased sensation in right arm. Strength intact in bilateral upper extremities. No other focal deficits on exam. Clear bilateral breath sounds. Normal heart sounds. With patient's symptoms of neck pain radiating into right arm, radicular pain is suspected at this time. Given that patient only has subjective numbness in right arm with motor deficits, no imaging will be obtained today. Given patient's chest pain, labs were obtained. Labs, imaging, and EKG were personally reviewed. See ED Course. Had interactive discussion with patient that labs, imaging, and EKG were overall reassuring. Discussed that we are suspicious for radicular pain causing her right arm pain and patient should manage symptoms at home with Tylenol, Ibuprofen, Lidocaine patch, and Robaxin. We also provided Spine followup. She is agreeable to plan. For chest pain, we provided Cardiology follow up given patient's age.Patient is agreeable to plan and reports feeling reassured given negative workup. Discussed return precautions in depth and patient reported understanding. Patient remained hemodynamically stable. All questions and concerns were discussed prior to discharge. Ultimately, this patient was Was discharged Home (Discharge) The primary encounter diagnosis was Chest pain, unspecified type. A diagnosis of Radicular pain in right arm was also pertinent to this visit. . Patient was counseled on the diagnoses. Discharge medications if any are listed below. Listed medications are thought be either curative for listed diagnoses or will help control ongoing symptoms. Patient is requested to follow up with Cardiology and Neurosurgery in order to obtain specialty care. Instructions on follow up as well as precautions to return to the ER provided verbally by the EM provider, as well as written in patients discharge education packet. Labs were personally reviewed and did not demonstrate any actionable abnormalities. ED Prescriptions Medication Sig Dispense Start Date End Date Auth. Provider methocarbamol (Robaxin) 500 MG tablet Take 1 tablet by mouth 4 times a day as needed for muscle spasms. 40 tablet 07/28/2025 08/07/2025 Sachin Jolley MD lidocaine (Lidoderm) 5 % patch Apply 1 patch topically daily over 12 hours. Remove & discard patch within 12 hours or as directed by . 10 patch 07/28/2025 -- Sachin Jolley MD Discharge Instructions Follow up with Spine and Cardiology for continued management of symptoms. You can use lidocaine patches, robaxin, Tylenol, and ibuprofen for pain control at home. Please return to ED if your symptoms worsen, change in location, change in severity, new symptoms develop or if you become concerned for your health. Disposition Discharge AVS Excuses (Wallisian Snapshot) - Printed 07/28/2025 AVS (Wallisian Snapshot) - Printed 07/28/2025 Follow-Ups: Follow up with [facility] (Neurosurgery) Discharge Orders Discharge Ambulatory referral to Spine Surgery Authorized Discharge Ambulatory referral to Cardiology Authorized [1] Past Medical History: Diagnosis Date Chondrocostal junction syndrome (tietze) Costochondritis Conversions - Other Cervical Dysplasia Cough Cough Diseases of lips Lip lesion Migraine, unspecified, not intractable, without status migrainosus Migraine without status migrainosus, not intractable Other specified anxiety disorders Depression with anxiety Pain in unspecified ankle and joints of unspecified foot Ankle pain Personal history of other diseases of the respiratory system History of influenza Personal history of other diseases of the respiratory system Personal history of asthma Personal history of other specified conditions History of syncope Sacrococcygeal disorders, not elsewhere classified Coccydynia SVT (supraventricular tachycardia) (CMS/HCC) [2] Past Surgical History: Procedure Laterality Date HYSTERECTOMY N/A Hysterectomy from [employer] TUBAL LIGATION [3] Family History Problem Relation Name Age of Onset Anemia Mother Emphysema Mother Conversions - Other Father Hyperglycemia Conversions - Other Mother Hyperglycemia Hyperlipidemia Mother Hyperlipidemia Father Hypertension Mother [4] Tobacco Use Smoking status: Never Passive exposure: Never Smokeless tobacco: Never Vaping Use Vaping status: Never Used Substance Use Topics Alcohol use: Never Comment: Alcoholic Drinks/day: Never Drank Alcohol Drug use: Never [5] Allergies Allergen Reactions Promethazine Nausea and Vomiting Sachin Jolley MD Resident 07/28/251827 Cosigned by Mario Barron MD at 07/28/2025 6:56 PM EDT Associated attestation - Mario Barron MD - 07/28/2025 6:56 PM EDT I saw and evaluated the patient with the resident/fellow. I discussed the case with the resident/fellow and agree with the findings and plan as documented. * ED Triage Notes - Norma Juarez RN - 07/27/2025 9:48 PM EDT Patient arrived to ED ambulatory. GCS 15 on arrival. Patient c/o right arm pain and chest pain thatradiates to her back and neck since yesterday. EKG obtained in the lobby at time of triage. documented in this encounter Plan of Treatment Upcoming Encounters Date Type Department Care Team (Late st Contact Info) Description 09/22/2025 10:40 AM EST Office Visit [facility] [address], [address] [place] [id number] Ebony Navarro PA [address] [place] [address] 03/18/2026 2:30 PM EDT Ovarian Cancer Screening [facility] [address] [place] [address] Scheduled Referrals Name Type Priority Associated Diagnoses Order Schedule Discharge Ambulatory referral to Spine Surgery Outpatient Referral Routine Radicular pain in right arm 1 Occurrences starting 07/28/2025 until 01/29/2027 Discharge Ambulatory referral to Cardiology Outpatient Referral Routine Chest pain, unspecified type 1 Occurrences starting 07/28/2025 until 01/29/2027 documented as of this encounter Procedures Procedure Name Priority Date/Time Associated Diagnosis Comments XR CHEST 1 VIEW STAT 07/28/2025 1:45 AM EDT D DIMER, QUANTITATIVE STAT 07/28/2025 1:20 AM EDT TROPONIN T, HIGH SENSITIVITY, 0 HOUR, PLASMA, REFLEX TO 2 HOUR STAT 07/28/2025 1:06 AM EDT ED HIV 1/2 ANTIBODY/ANTIGEN SCREEN WITH REFLEX TO HIV I/II DIFFERENTIATION STAT 07/27/2025 11:48 PM EDT ED PROTOCOL HIV 1/2 ANTIBODY/ANTIGEN SCREEN W/REFLEX TO HIV 1/2 ANTIBODY DIFFERENTIATION STAT 07/27/2025 11:48 PM EDT HEPATITIS C ANTIBODY - ED W/REFLEX TO HCV QUANT PCR STAT 07/27/2025 11:48 PM EDT CBC WITH AUTO DIFFERENTIAL STAT 07/27/2025 11:48 PM EDT TEST QUALITATIVE PLASMA STAT 07/27/2025 11:48 PM EDT BASIC METABOLIC PANEL, PLASMA STAT 07/27/2025 11:48 PM EDT ECG ADULT STAT 07/27/2025 9:58 PM EDT documented in this encounter Results * XR Chest 1 View (07/28/2025 1:45 AM EDT) Anatomical Region Laterality Modality Chest Computed Radiogr aphy Impressions 07/28/2025 2:11 AM EDT No acute cardiopulmonary findings. CRITICAL RESULT: No. COMMUNICATION: Per this written report. By electronically signing this report, I, the attending physician, attest that I have personally reviewed the images/data for the above examination(s) and agree with the final edited report. Drafted by Keshawn Diaz MD on 07/28/2025 1:49 AM Final report signed by Eric Lou MD on 07/28/2025 2:11 AM Narrative 07/28/2025 2:11 AM EDT CLINICAL INDICATION: Chest pain TECHNIQUE: XR CHEST 1 VIEW COMPARISON: Chest radiograph 08/15/2021 FINDINGS: Cardiomediastinal silhouette is normal and stable. No consolidation, pleural effusion, pulmonary edema or pneumothorax. No acute osseous abnormality. Procedure Note Eric Lou MD - 07/28/2025 CLINICAL INDICATION: Chest pain TECHNIQUE: XR CHEST 1 VIEW COMPARISON: Chest radiograph 08/15/2021 FINDINGS: Cardiomediastinal silhouette is normal and stable. No consolidation,pleural effusion, pulmonary edema or pneumothorax. No acute osseousabnormality. IMPRESSION: No acute cardiopulmonary findings. CRITICAL RESULT: No. COMMUNICATION: Per this written report. By electronically signing this report, I, the attending physician, attestthat I have personally reviewed the images/data for the aboveexamination(s) and agree with the final edited report. Drafted by Keshawn Diaz MD on 07/28/2025 1:49 AM Final report signed by Eric Lou MD on 07/28/2025 2:11 AM us Mario Barron MD IMG XR PROCEDURES Final Resul t * D-Dimer, Quantitative (07/28/2025 1:20 AM EDT) [facility] D Dimer, Quantitative 0.37 <0.50 ug/mL FEU 07/28/2025 1:38 AM EDT [facility] Blood Venous blood specimen / Unknown Venipuncture / Unknown 07/28/2025 1:20 AM EDT 07/28/2025 1:21 AM EDT Narrative [facility] - 07/28/2025 1:38 AM EDT Test performed by STAGO D-dimer assay. Values greater than 0.50 ug/mL FEU should be evaluated for risk stratification of patients with possible venous thromboembolism. In addition to expected elevations following injury or surgery, D-dimer levels increase in normal and increase steadily with normal aging. Values in healthy individuals often exceed the VTE exclusion cutoff value, and should be considered in the clinical context. us Mario Barron MD LAB BLOOD ORDERABLES Final Re sult Performing Organization Address [facility] Co de Phone Number [facility] [address] [place] [address] * Troponin now and 120 min (07/28/2025 1:06 AM EDT) [facility] Troponin T, High Sensitivity, 0 Hour <6 <14 ng/L 07/28/2025 1:37 AM EDT [facility] Blood Venous blood specimen / Unknown Venipuncture / Unknown 07/28/2025 1:06 AM EDT 07/28/2025 1:07 AM EDT us Mario Barron MD LAB BLOOD ORDERABLES Final Re sult Performing Organization Address [facility]/ZIP Co de Phone Number [facility] [address] [place] [address] * ED HIV 1/2 Antibody/Antigen Screen w/Reflex to HIV 1/2 Differentiation (07/27/2025 11:48 PM EDT) [facility] HIV 1 & 2 Antibody/Antigen Screen Non Reactive Non Reactive 07/28/2025 12:40 AM EDT [facility] Comment:Screening for HIV 1 & 2 antibodies, and P24 antigen is NONREACTIVE. No confirmatory testing is required. Blood Venous blood specimen / Unknown Venipuncture / Unknown 07/27/2025 11:48 PM EDT 07/27/2025 11:58 PM EDT us Mario Barron MD LAB BLOOD ORDERABLES Final Re sult Performing Organization Address [facility] Co de Phone Number [facility] [address] [place] [address] * Hepatitis C Antibody - ED (07/27/2025 11:48 PM EDT) Hepatitis C Antibody Negative Negative 07/28/2025 12:40 AM EDT [facility] Blood Venous blood specimen / Unknown Venipuncture / Unknown 07/27/2025 11:48 PM EDT 07/27/2025 11:58 PM EDT us Mario Barron MD LAB BLOOD ORDERABLES Final Re sult Performing Organization Address [facility] de Phone Number [facility] [address] [place] [address] * Test Qualitative Plasma (07/27/2025 11:48 PM EDT) [facility] Test Negative Negative 07/28/2025 12:44 AM EDT [facility] Blood Venous blood specimen / Unknown Venipuncture / Unknown 07/27/2025 11:48 PM EDT 07/27/2025 11:52 PM EDT Narrative [facility] - 07/28/2025 12:44 AM EDT Reference Range: Males and non- females: Negative. us Mario Barron MD LAB BLOOD ORDERABLES Final Re sult Performing Organization Address [facility] Co de Phone Number [facility] [address] [place] [address] * (ABNORMAL) BMP (07/27/2025 11:48 PM EDT) Pathologist [facility] Glucose, Plasma 105(H) 74 - 99 mg/dL 07/28/2025 12:44 AM EDT [facility] BUN, Plasma 13 7 - 21 mg/dL 07/28/2025 12:44 AM EDT [facility] Creatinine, Plasma 0.75 0.60 - 1.10 mg/dL 07/28/2025 12:44 AM EDT [facility] BUN/Creatinine Ratio 17 07/28/2025 12:44 AM EDT [facility] Sodium, Plasma 139 136 - 145 mmol/L 07/28/2025 12:44 AM EDT [facility] Potassium, Plasma 4.6 3.6 - 4.9 mmol/L 07/28/2025 12:44 AM EDT [facility] Comment:Hemolyzed, result ma y be falsely increased. Chloride, Plasma 104 97 - 107 mmol/L 07/28/2025 12:44 AM EDT [facility] CO2, Plasma 22 22 - 29 mmol/L 07/28/2025 12:44 AM EDT [facility] Anion Gap 13 6 - 16 mmol/L 07/28/2025 12:44 AM EDT [facility] Total Calcium, Plasma 9.1 8.9 - 10.2 mg/dL 07/28/2025 12:44 AM EDT [facility] eGFRcr 91.8 mL/min/1.7 3m*2 07/28/2025 12:44 AM EDT [facility] Comment:Reported eGFRcr in m L/min/1.73m2 is based the CKD-EPI 2020 equation that does not use a race coefficient. Blood Venous blood specimen / Unknown Venipuncture / Unknown 07/27/2025 11:48 PM EDT 07/27/2025 11:52 PM EDT us Mraio Barron MD LAB BLOOD ORDERABLES Final Re sult [facility] [address] [place] [address] * CBC with Diff (07/27/2025 11:48 PM EDT) WBC Count 10.21 3.70 - 10.30 10*3/uL LAB HEMATOLOGY METHOD 07/27/2025 11:54 PM EDT [facility] RBC Count 4.90 3.90 - 5.20 10*6/uL LAB HEMATOLOGY METHOD 07/27/2025 11:54 PM EDT [facility] HGB 14.5 11.2 - 15.7 g/dL LAB HEMATOLOGY METHOD 07/27/2025 11:54 PM EDT [facility] HCT 43.6 34.0 - 45.0 % LAB HEMATOLOGY METHOD 07/27/2025 11:54 PM EDT [facility] Platelet Count 254 155 - 369 10*3/uL LAB HEMATOLOGY METHOD 07/27/2025 11:54 PM EDT [facility] MCV 89 79 - 98 fL LAB HEMATOLOGY METHOD 07/27/2025 11:54 PM EDT [facility] MCH 29.6 26.0 - 32.0 pg LAB HEMATOLOGY METHOD 07/27/2025 11:54 PM EDT [facility] MCHC 33.3 30.7 - 35.5 g/dL LAB HEMATOLOGY METHOD 07/27/2025 11:54 PM EDT [facility] RDW 14.4 11.5 - 14.5 % LAB HEMATOLOGY METHOD 07/27/2025 11:54 PM EDT [facility] MPV 9.9 8.8 - 12.5 fL LAB HEMATOLOGY METHOD 07/27/2025 11:54 PM EDT [facility] nRBC 0.0 <=0.0 per 100 WBCs LAB HEMATOLOGY METHOD 07/27/2025 11:54 PM EDT [facility] Differential Type Automated LAB HEMATOLOGY METHOD 07/27/2025 11:54 PM EDT [facility] Neutrophils % 59 % LAB HEMATOLOGY METHOD 07/27/2025 11:54 PM EDT [facility] Lymphocytes % 30 % LAB HEMATOLOGY METHOD 07/27/2025 11:54 PM EDT [facility] Monocytes % 7 % LAB HEMATOLOGY METHOD 07/27/2025 11:54 PM EDT [facility] Eosinophils % 3 % LAB HEMATOLOGY METHOD 07/27/2025 11:54 PM EDT [facility] Basophils % 1 % LAB HEMATOLOGY METHOD 07/27/2025 11:54 PM EDT [facility] Immature Granulocytes % 0 % LAB HEMATOLOGY METHOD 07/27/2025 11:54 PM EDT [facility] Neutrophils Absolute 6.01 1.60 - 6.10 10*3/uL LAB HEMATOLOGY METHOD 07/27/2025 11:54 PM EDT [facility] Lymphocytes Absolute 3.09 1.20 - 3.90 10*3/uL LAB HEMATOLOGY METHOD 07/27/2025 11:54 PM EDT [facility] Monocytes Absolute 0.72 0.30 - 0.90 10*3/uL LAB HEMATOLOGY METHOD 07/27/2025 11:54 PM EDT [facility] Eosinophils Absolute 0.32 0.00 - 0.50 10*3/uL LAB HEMATOLOGY METHOD 07/27/2025 11:54 PM EDT [facility] Basophils Absolute 0.05 0.00 - 0.10 10*3/uL LAB HEMATOLOGY METHOD 07/27/2025 11:54 PM EDT [facility] Immature Granulocytes Absolute 0.02 0.00 - 0.06 10*3/uL LAB HEMATOLOGY METHOD 07/27/2025 11:54 PM EDT [facility] Blood Venous blood specimen / Unknown Venipuncture / Unknown 07/27/2025 11:48 PM EDT 07/27/2025 11:52 PM EDT Narrative [facility] - 07/27/2025 11:54 PM EDT Therapeutic decision making should be based on absolute values, rather than percentages. us Mario Barron MD LAB BLOOD ORDERABLES Final Re sult Performing Organization Address City/State/[facility] Co de Phone Number [facility] [address] [place] [address] * EKG now - STAT (adult) (07/27/2025 9:58 PM EDT) EKG DIAGNOSIS CLASS Borderline Abnormal MUSE ECG Ventricular Rate 78 BPM MUSE ECG Atrial Rate 78 BPM MUSE ECG WI Interval 186 ms MUSE ECG QRSD Interval 74 ms MUSE ECG QT Interval 378 ms MUSE ECG QTC Interval 430 ms MUSE ECG P [place] 55 degrees MUSE ECG R [place] -18 degrees MUSE ECG T Wave [place] 11 degrees MUSE ECG Diagnosis Sinus rhythm with premature atrial complexes MUSE ECG Diagnosis Low voltage QRS MUSE ECG Diagnosis MUSE ECG Diagnosis MUSE ECG Diagnosis Confirmed by Cesar Mccollum ([id number]) on 07/28/2025 9:53:06 AM MUSE ECG 07/27/2025 9:58 PM EDT 07/28/2025 9:53 AM EDT us Mario Barron MD ECG ORDERABLES Final Result MUSE ECG documented in this encounter Visit Diagnoses Diagnosis Chest pain, unspecified type- Primary Radicular pain in right arm Unspecified neuralgia, neuritis, and radiculitis documented in this encounter Additional Health Concerns Assessment Noted Time PHQ-9 Depression Total Score: 18 02/14/ 022 3:50 PM EDT A fall risk assessment has been complete d for the patient 05/22/2023 10:40 AM EDT A Body Mass Index follow-up plan has been documented for the patient 04/13/2024 9:21 AM EDT documented as of this encounter Care Teams Nematologist Relationship Specialty Start Date End Date Pcp, [place] [address] PCP - General Family Medicine 07/27/25 documented as of this encounter
--- OUTSIDE RECORDS SUMMARY | 2025-08-25 06:59 | XMS_ITS | Encounter Summary ---
Author Organization Healthcare Address [address] [place] [address] Care Team Providers Care Well Blower Name Role Phone Anca Cintron MD Primary Care Provider [phone] Yanci Molina MD Unavailable [phone]- [phone] Pcp, No Primary Care Provider Unavailabl e Reason for Visit * Reason Onset Date Comments Med Refill 08/13/2022 Encounter Details Date Type Department Care Team (Late st Contact Info) Description 08/13/2022 Refill [facility] [address] [place] [address] Anca Cintron MD [address] [place] [address] Social History Tobacco Use Types Packs/Day Years Used Date Smoking Tobacco: Never Smokeless Tobacco: Never Alcohol Use Standard Drinks/Week Comments Defer 0 (1 standard drink = 0.6 oz pure alcohol) Alcoholic Drinks/day: Never Drank Alcohol PHQ-2 Answer Date Recorded Patient Health Questionnaire-2 Score 2 02/27/2022 Comments No Sex and Gender Information Value Date Recorded Sex Assigned at Not on file Legal Sex Female 8:54 PM EDT Gender Identity Not on file Sexual Orientation Not on file documented as of this encounter Miscellaneous Notes * Telephone Encounter - Ruben Dinero RN - 08/16/2022 10:24 AM EDT Sent patient a my chart message as we have not been able to reach her by phone * Telephone Encounter - Fifi Vernon - 08/13/2022 11:25 AM EDT I called and left message for Patient to call back to make an appointment for refill * Telephone Encounter - Anca Cintron MD - 08/13/2022 10:31 AM EDT Unfortunately since this is controlled we have to see her within 3 months for refill, so I can OB her this Saturday in between WW if she would like, thanks! documented in this encounter Plan of Treatment Upcoming Encounters Date Type Department Care Team (Late st Contact Info) Description 09/22/2025 10:40 AM EST Office Visit [facility] [address] [place] [address] Ebony Navarro PA [address] [place] [address] 03/18/2026 2:30 PM EDT Ovarian Cancer Screening [facility] Gynecology [address] [place] [address] documented as of this encounter Visit Diagnoses Not on filedocumented in this encounter Additional Health Concerns Assessment Noted Time PHQ-9 Depression Total Score: 18 022 3:50 PM EDT A fall risk assessment has been complete d for the patient 10/19/2021 11:27 AM EST documented as of this encounter Care Teams Well Blower Relationship Specialty Start Date End Date Anca Cintron MD [address] [place] [address] PCP - General 03/10/21 03/04/25 Yanci Molina MD [address] [place] [address] PCP - Resident Internal Medicine 02/28/22 04/26/24 Pcp, No [address] [place] [address] PCP - General Family Medicine 07/27/25 documented as of this encounter
--- OUTSIDE RECORDS SUMMARY | 2025-08-25 06:59 | XMS_ITS | Encounter Summary ---
Author Organization Healthcare Address [address] [place] [address] Care Team Providers Care Information Technology Analyst Name Role Phone Pcp, No Primary Care Provider Unavailabl e Encounter Details Date Type Department Care Team (Latest Contact Info) Description 07/28/2025 Travel Social History Tobacco Use Types Packs/Day Years [...] place to sleep or slept in a residential (including now)? No 04/10/2024 AUDIT-C Answer Date [...] the past 12 months has th e electric, gas, oil, or water company threatened to shut off services in your home? No 04/10/2024 PHQ-2A Answer Date Recorded Patient Health Questionnaire-2 Score 0 09/25/2023 Comments No Sex and Gender Information Value Date Recorded Sex Assigned at Not on file Legal Sex Female 8:54 PM EDT Gender Identity Not on file Sexual Orientation Not on file documented as of this encounter Plan of Treatment Upcoming Encounters Date Type Department Care Team (Late st Contact Info) Description 09/22/2025 10:40 AM EST Office Visit [place] [facility] [address] [place] [address] Ebony Navarro PA [address] [place] [address] 03/18/2026 2:30 PM EDT Ovarian Cancer Screening [facility] [address] [place] [address] documented as of this encounter Visit Diagnoses [...] documented as of this encounter Care Teams Information Technology Analyst Relationship Specialty Start Date End Date Pcp, No [address] [place] [address] PCP - General Family Medicine 07/27/25 documented as of this encounter
--- OUTSIDE RECORDS SUMMARY | 2025-08-25 06:59 | XMS_ITS | Encounter Summary ---
Author Organization Healthcare Address [address] [place] [address] Care Team Providers Care Screw Machine Tender Name Role Phone Pcp, No Primary Care Provider Unavailabl e Encounter Details Date Type Department Care Team (Latest Contact Info) Description 07/27/2025 Travel Social History Tobacco Use Types Packs/Day [...] place to sleep or slept in a fci (including now)? No 04/10/2024 AUDIT-C Answer Date [...] on file documented as of this encounter Functional Status * AUDIT-C Score Answer Date of Assessment Author 0 07/27/2025 9:53 PM EDT Norma Juarez RN * Question Answer Date of Assessment Author Q1: How often do you have a drink containing alcohol? Never 07/27/2025 9:53 PM Norma Santizo RN Q2: How many drinks containing alcohol do you have on a typical day when you are drinking? Patient does not drink 07/27/2025 9:53 PM EBENEZERT Norma Juarez RN Q3: How often do [...] Month) No 025 11:57 PM EDT Cristina Gudino, RN 2. Non-Specific Active Suici óscar Thoughts (Past 1 Month) No 07/27/2025 11:57 PM EDT Cristina Gudino, RN 6. Suicidal Behavior (Lifetime) No 11:57 PM EDT Cristina Gudino RN documented as of this encounter Plan of Treatment Upcoming Encounters Date Type Department Care Team (Late st Contact Info) Description 09/22/2025 10:40 AM EST Office Visit [place] [facility] [address] [place] [address] Ebony Navarro, PA [address] [place] [address] 03/18/2026 2:30 PM EDT Ovarian Cancer Screening [facility] [address] [place] [address] documented as of this encounter Visit Diagnoses [...] documented as of this encounter Care Teams Screw Machine Tender Relationship Specialty Start Date End Date Pcp, No [address] [place] [address] PCP - General Family Medicine 07/27/25 documented as of this encounter
--- OUTSIDE RECORDS SUMMARY | 2025-08-25 07:00 | XMS_ITS | Clinical Summary ---
Author Organization Healthcare Address [address] [place] [address] Care Team Providers Care Rocket Scientist Name Role Phone Pcp, No Primary Care Provider Unavailabl e Allergies Active Allergy Reactions Criticality Noted Date Comments Promethazine Nausea,Vomiting Low 01/11/2009 Medications cholecalciferol (Vitamin D3) 125 MCG (5000 UT) capsule Take 5,000 Units by mouth 1 (one) time each day. Active polyethylene glycol (Golytely) 236 g solution See pharmacy notes for patient label instructions 4000 mL 4 Active Additional Information Patient not taking.Reported on 04/10/2024 diclofenac (Voltaren) 1 % topical gel Place 1-2 g on the skin 2 (two) times a day. Apply as directed to joint for pain. 100 g 3 4 Active methocarbamol (Robaxin) 500 MG tablet Take 1 tablet by mouth 4 times a day as needed for muscle spasms. 40 tablet 5 Active lidocaine (Lidoderm) 5 % patch Apply 1 patch topically daily over 12 hours. Remove & discard patch within 12 hours or as directed by MD. 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 Hyperglycemia 02/24/2016 Vitamin D deficiency 04/28/2014 Resolved Problems Problem Noted Date Diagnosed Date Resolved Date Numbness and tingling in right hand 10/14/2022 07/18/2025 Encounters Date Type Department Care Team Description 07/28/2025 Travel 07/27/2025 11:29 PM EDT - 07/28/2025 4:26 AM EDT Emergency [facility] [address] [place] [address] Mario Barron MD Chest pain, unspecified type (Primary Dx); Radicular pain in right arm Discharge Disposition: Home or Self Care 07/27/2025 Travel from Last 3 Months Immunizations Immunization Administration Dates Next Due Influenza, Unspecified 08/31/2016,09/12/2015, Influenza, seasonal, injectable 08/04/2015 MMR 11/24/1991,09/15/1991 PPD Skin Test (TB Skin Test) 01/26/2014, 02/02/2013,02/01/2012,11/07/2010, 11/09/2009,02/02/2009,10/31/2007,06/25/2006, 06/06/2005,05/29/2004,05/24/2003,04/28/2002, 01/07/2002 Tdap 04/28/2018,02/01/2012 Family History Medical History Relation Name Comments Conversions - Other Father Hypergly cemia Hyperlipidemia Father Anemia Mother Conversions - Other Mother Hypergly cemia Emphysema Mother Hyperlipidemia Mother Hypertension Mother Relation Name Status Comments Father Mother Social History Tobacco Use Types Packs/Day Years Used Date Smoking Tobacco: Never Passive Smoke Exposure: Never Smokeless Tobacco: Never Tobacco Cessation:Counseling Given: Not Answered Alcohol Use Standard Drinks/Week Comments Never 0 [...] place to sleep or slept in a fpc (including now)? No 04/10/2024 AUDIT-C Answer Date [...] the past 12 months has th e [employer], gas, oil, or water company threatened to shut off services in your home? No 04/10/2024 PHQ-2A Answer Date Recorded Patient Health Questionnaire-2 Score 0 09/25/2023 Comments No Sex and Gender Information Value Date Recorded Sex Assigned at Not on file Legal Sex Female 8:54 PM EDT Gender Identity Not on file Sexual Orientation Not on file Last Filed Vital Signs Vital Sign Reading [...] Mass Index 36.94 07/27/2025 9:54 PM EDT Plan of Treatment Upcoming Encounters Date Type Department Care Team (Late st Contact Info) Description 09/22/2025 10:40 AM EST Office Visit [place] [facility] [address] [place] [address] Ebony Navarro, PA [address] [place] [address] 03/18/2026 2:30 PM EDT Ovarian Cancer Screening [facility] [address] [facility], [address]rd [place] [address] Health Maintenance Due Date Last Done Comments [facility]-/Child/Adol SDOH Screenings 1965 [facility]- SDOH Screenings 02/24/1984 [facility]-Adult SDOH Screenings 02/24/1984 [facility]-Hepatitis B Vaccines (1 of 3 - 19+ 3-dose series) 1985 CT Colonography 2011 FIT-DNA 2011 FIT 2011 FOBT 2011 Sigmoidoscopy 2011 [facility]-Pneumococcal Vaccine: 50+ Years (1 of 1 - PCV) 02/24/2016 [facility]-Zoster Vaccines (1 of 2) 02/24/2016 [facility]-Diabetes: Hemoglobin A1C 04/10/2025 04/10/2024, 09/25/2023, 08/30/2022, Additional history exists [facility]-Depression Screening 05/12/2025 05/12/2024, 01/27 [id number] Vaccine ( season) 2025 [facility]-Influenza Vaccine (#1) 06/28/202508/31, 09/12/2015, 08/04/2015, Additional history exists [facility]-Breast Cancer Screening 08/28/202510/2022, 06/08/2022, 12/27/2020, Additional history exists [facility]-DTaP,Tdap,and Td Vaccines (3 - Td or Tdap) 04/28/2028 04/28/2018, 02/01/2012 Colonoscopy 01/10/2034 01/13/2024, 06/25/2013 [facility]-Colorectal Cancer Screening 01/10/2034 [facility]-Cervical Cancer Screening Discontinued [facility]-HPV/Cotest Discontinued 04/02/2014, 02/26, 02/21/2010, Additional history exists [facility]-Pap Smear Discontinued 04/02/2014, 02/26, 02/21/2010, Additional history exists [facility]-Obesity Intervention Completed 024, 09/25/2023, 09/25/2023, Additional history exists [facility]-HIV Screening Completed 07/27/2025, 09/25/2023 [facility]-Hepatitis C Screening Completed 07/27/2025, HPV Vaccines Aged Out No longer eligi ble based on patient's age to complete this topic [facility]-HIB Vaccines Aged Out No longer e ligible based on patient's age to complete this topic [facility]-Hepatitis A Vaccines Aged Out No longer eligible based on patient's age to complete this topic [facility]-IPV Vaccines Aged Out No longer e ligible based on patient's age to complete this topic [facility]-Rotavirus Vaccines Aged Out No lo nger eligible based on patient's age to complete this topic Procedures Procedure Name Priority Date/Time Associated Diagnosis [...] QUANT PCR STAT 07/27/2025 11:48 PM EDT TEST QUALITATIVE PLASMA STAT 07/27/2025 11:48 PM EDT BASIC METABOLIC PANEL, PLASMA STAT 07/27/2025 11:48 PM EDT CBC WITH AUTO DIFFERENTIAL STAT 07/27/2025 11:48 PM EDT ECG ADULT STAT 07/27/2025 9:58 PM EDT HEMOGLOBIN A1C Routine 04/10/2024 1:13 PM EDT Arthralgia, unspecified joint COLONOSCOPY Routine 01/13/2024 11:03 AM EDT Healthcare maintenance MAMMOGRAPHY BREAST SCREENING TOMOSYNTHESIS BILATERAL Routine 08/28/2023 1:47 PM EDT Routine general medical examination at a health care facility CYTO DATA CONVERSION Routine 04/02/2014 12:00 AM EDT from Last 3 Months or Most Recently Relevant to Health Maintenance Results * XR Chest 1 View (07/28/2025 [...] Eric Lou MD on 07/28/2025 2:11 AM Mario Barron MD IMG XR PROCEDURES Final Resul t * D-Dimer, Quantitative (07/28/2025 1:20 AM EDT) D Dimer, Quantitative 0.37 <0.50 ug/mL FEU 07/28/2025 1:[address] [facility] Blood Venous blood specimen / Unknown Venipuncture / Unknown 07/28/2025 1:20 AM EDT 07/28/2025 1:[address] [facility] - 07/28/2025 1:38 AM EDT [...] ORDERABLES Final Re sult Performing Organization Address [facility]/ZIP Co de Phone Number [facility] [address] [place] [address] * Troponin now and 120 min (07/28/2025 1:06 AM EDT) Troponin T, High Sensitivity, 0 Hour <6 <14 ng/L 07/28/2025 1:[address] [facility] Blood Venous blood specimen / Unknown Venipuncture / Unknown 07/28/2025 1:06 AM EDT 07/28/2025 1:07 AM EDT us Mario Barron MD LAB BLOOD ORDERABLES Final Re sult Performing Organization Address [facility] Co de Phone Number [facility] [address] [place] [address] * ED HIV 1/2 Antibody/Antigen Screen w/Reflex to HIV 1/2 Differentiation (07/27/2025 11:48 PM EDT) Pathologist [facility] [place] HIV 1 & 2 Antibody/Antigen Screen Non Reactive Non Reactive 07/28/2025 12:[address] [facility] Comment:Screening for HIV 1 & 2 antibodies, and P24 antigen is NONREACTIVE. No confirmatory testing is required. Blood Venous blood specimen / Unknown Venipuncture / Unknown 07/27/2025 11:48 PM EDT 07/27/2025 11:58 PM EDT us Mario Barron MD LAB BLOOD ORDERABLES Final Re sult [facility] [address] [place] [address] * Hepatitis C Antibody - ED (07/27/2025 11:48 PM EDT) [facility] Hepatitis C Antibody Negative Negative 07/28/2025 12:[address] [facility] Blood Venous blood specimen / Unknown Venipuncture / Unknown 07/27/2025 11:48 PM EDT 07/27/2025 11:58 PM EDT Abhisek Kellen Barron MD LAB BLOOD ORDERABLES Final Re sult Performing Organization Address City/[facility]/ZIP Co de Phone Number [facility] [address] [place] [address] * CBC with Diff (07/27/2025 11:48 PM EDT) [facility] WBC Count 10.21 3.70 - 10.30 10*3/uL LAB HEMATOLOGY METHOD 07/27/2025 11:[address] [facility] RBC Count 4.90 3.90 - 5.20 10*6/uL LAB HEMATOLOGY METHOD 07/27/2025 11:[address] [facility] HGB 14.5 11.2 - 15.7 g/dL LAB HEMATOLOGY METHOD 07/27/2025 11:[address] [facility] HCT 43.6 34.0 - 45.0 % LAB HEMATOLOGY METHOD 07/27/2025 11:[address] [facility] Platelet Count 254 155 - 369 10*3/uL LAB HEMATOLOGY METHOD 07/27/2025 11:[address] [facility] MCV 89 79 - 98 fL LAB HEMATOLOGY METHOD 07/27/2025 11:[address] [facility] MCH 29.6 26.0 - 32.0 pg LAB HEMATOLOGY METHOD 07/27/2025 11:[address] [facility] MCHC 33.3 30.7 - 35.5 g/dL LAB HEMATOLOGY METHOD 07/27/2025 11:[address] [facility] RDW 14.4 11.5 - 14.5 % LAB HEMATOLOGY METHOD 07/27/2025 11:[address] [facility] MPV 9.9 8.8 - 12.5 fL LAB HEMATOLOGY METHOD 07/27/2025 11:[address] [facility] nRBC 0.0 <=0.0 per 100 WBCs LAB HEMATOLOGY METHOD 07/27/2025 11:[address] [facility] Differential Type Automated LAB HEMATOLOGY METHOD 07/27/2025 11:[address] [facility] Neutrophils % 59 % LAB HEMATOLOGY METHOD 07/27/2025 11:[address] [facility] Lymphocytes % 30 % LAB HEMATOLOGY METHOD 07/27/2025 11:[address] [facility] Monocytes % 7 % LAB HEMATOLOGY METHOD 07/27/2025 11:[address] [facility] Eosinophils % 3 % LAB HEMATOLOGY METHOD 07/27/2025 11:[address] [facility] Basophils % 1 % LAB HEMATOLOGY METHOD 07/27/2025 11:[address] [facility] Immature Granulocytes % 0 % LAB HEMATOLOGY METHOD 07/27/2025 11:[address] [facility] Neutrophils Absolute 6.01 1.60 - 6.10 10*3/uL LAB HEMATOLOGY METHOD 07/27/2025 11:[address] [facility] Lymphocytes Absolute 3.09 1.20 - 3.90 10*3/uL LAB HEMATOLOGY METHOD 07/27/2025 11:[address] [facility] Monocytes Absolute 0.72 0.30 - 0.90 10*3/uL LAB HEMATOLOGY METHOD 07/27/2025 11:[address] [facility] Eosinophils Absolute 0.32 0.00 - 0.50 10*3/uL LAB HEMATOLOGY METHOD 07/27/2025 11:[address] [facility] Basophils Absolute 0.05 0.00 - 0.10 10*3/uL LAB HEMATOLOGY METHOD 07/27/2025 11:[address] [facility] Immature Granulocytes Absolute 0.02 0.00 - 0.06 10*3/uL LAB HEMATOLOGY METHOD 07/27/2025 11:[address] [facility] Blood Venous blood specimen / Unknown Venipuncture / Unknown 07/27/2025 11:48 PM EDT 07/27/2025 11:[address] [facility] - 07/27/2025 11:54 PM EDT Therapeutic decision making should be based on absolute values, rather than percentages. us Mario Barron MD LAB BLOOD ORDERABLES Final Re sult [facility] [address] [place] [address] * Test Qualitative Plasma (07/27/2025 11:48 PM EDT) Test Negative Negative 07/28/2025 12:[address] [facility] Blood Venous blood specimen / Unknown Venipuncture / Unknown 07/27/2025 11:48 PM EDT 07/27/2025 11:[address] [facility] - 07/28/2025 12:44 AM EDT Reference Range: Males and non- females: Negative. us Mario Barron MD LAB BLOOD ORDERABLES Final Re sult [facility] [address] [place] [address] * (ABNORMAL) BMP (07/27/2025 11:48 PM EDT) Glucose, Plasma 105(H) 74 - 99 mg/dL 07/28/2025 12:[address] [facility] BUN, Plasma 13 7 - 21 mg/dL 07/28/2025 12:[address] [facility] Creatinine, Plasma 0.75 0.60 - 1.10 mg/dL 07/28/2025 12:[address] [facility] BUN/Creatinine Ratio 17 07/28/2025 12:[address] [facility] Sodium, Plasma 139 136 - 145 mmol/L 07/28/2025 12:[address] [facility] Potassium, Plasma 4.6 3.6 - 4.9 mmol/L 07/28/2025 12:[address] [facility] Comment:Hemolyzed, result ma y be falsely increased. Chloride, Plasma 104 97 - 107 mmol/L 07/28/2025 12:[address] [facility] CO2, Plasma 22 22 - 29 mmol/L 07/28/2025 12:[address] [facility] Anion Gap 13 6 - 16 mmol/L 07/28/2025 12:[address] [facility] Total Calcium, Plasma 9.1 8.9 - 10.2 mg/dL 07/28/2025 12:[address] [facility] eGFRcr 91.8 mL/min/1.7 3m*2 07/28/2025 12:[address] [facility] Comment:Reported eGFRcr in m L/min/1.73m2 is based the CKD-EPI 2020 equation that does not use a race coefficient. Blood Venous blood specimen / Unknown Venipuncture / Unknown 07/27/2025 11:48 PM EDT 07/27/2025 11:52 PM EDT us Mario Barron MD LAB BLOOD ORDERABLES Final Re sult [facility] [address] [place] [address] * EKG now - STAT (adult) (07/27/2025 9:58 PM EDT) EKG DIAGNOSIS CLASS Borderline Abnormal MUSE ECG Ventricular Rate 78 BPM MUSE ECG Atrial Rate 78 BPM MUSE ECG NE Interval 186 ms MUSE ECG QRSD Interval 74 ms MUSE ECG QT Interval 378 ms MUSE ECG QTC Interval 430 ms MUSE ECG P [place] 55 degrees MUSE ECG R [place] -18 degrees MUSE ECG T Wave [place] 11 degrees MUSE ECG Diagnosis Sinus rhythm with premature atrial complexes MUSE ECG Diagnosis Low voltage QRS MUSE ECG Diagnosis MUSE ECG Diagnosis MUSE ECG Diagnosis Confirmed by Cesar Mccollum ([id number]) on 07/28/2025 9:53:06 AM MUSE ECG 07/27/2025 9:58 PM EDT 07/28/2025 9:53 AM EDT us Mario Barron MD ECG ORDERABLES Final Result MUSE ECG * (ABNORMAL) Hemoglobin A1c (04/10/2024 1:13 PM EDT) Hemoglobin A1c 6.0(H) <5.7 % 04/10/2024 2:35 PM EDT [facility] Blood Venous blood specimen / Unknown Venipuncture / Unknown 04/10/2024 1:13 PM EDT 04/10/2024 1:14 PM EDT Narrative [facility] - 04/10/2024 2:35 PM EDT HA1C Interpretive Data: Diagnosis of Diabetes: Diabetic > or = 6.5% Pre-diabetic 5.7 to 6.4% Non-diabetic < or = 5.6% Glycemic Targets for Type I and Type II Diabetics: Non- Adults <7.0% Adults <6.0% Children and Adolescents <7.5% Source: [place] [employer]. Standards of medical care in diabetes,2017. Diabetes Care.2017:40 (suppl 1):S1-S135. HbA1c assay performed by an ion-exchange chromatography method that is certified traceable to the DCCT. Francoise Lovett APRN, DNP LAB BLOOD ORDERABLES Fin al Result Performing Organization Address City/[facility] Co de Phone Number [facility] [address] [place] [address] * Colonoscopy (01/13/2024 11:03 AM EDT) Anatomical Region Laterality Modality Endoscopy Narrative 01/13/2024 11:11 AM EDT Table formatting from the original result was not included. Impression: The entire colon appeared normal. Recommendations Repeat screening colonoscopy in 10 years Indication Screen for Colorectal Cancer, Average Risk Medications See anesthesia record for anesthesia administered medications. Staff Staff Role Edmond Vega MD Proceduralist Terry Sosa, Bjorn Mayorga CRNA, MD Anesthesiologist Lucía Major RN Endo Nurse Alma Lacey RN Endo Nurse Preprocedure A history and physical has been performed, and patient medication allergies have been reviewed. The patient's tolerance of previous anesthesia has been reviewed. The risks and benefits of the procedure and the sedation options and risks were discussed with the patient. All questions were answered and informed consent obtained. Details of the Procedure The patient underwent monitored anesthesia care, which was administered by an anesthesia professional. The patient's blood pressure, heart rate, level of consciousness, respirations and oxygen were monitored throughout the procedure. A digital rectal exam was performed. A perianal exam was performed. The scope was introduced through the anus and advanced to the cecum. Retroflexion was performed in the rectum. The quality of bowel preparation was evaluated using the [place] Bowel Preparation Scale with scores of: right colon = 2, transverse colon = 2, left colon = 2. The total BBPS score was 6. Bowel prep was adequate. The patient experienced no blood loss. The procedure was not difficult. The patient tolerated the procedure well. There were no apparent adverse events. Attestation I personally performed the entire procedure Events Procedure Events Event Event Time ENDO SCOPE IN TIME 01/13/2024 10:42 AM ENDO CECUM REACHED 01/13/2024 10:53 AM ENDO SCOPE OUT TIME 01/13/2024 11:01 AM Specimens No specimens were documented in this log. Findings All observed locations appeared normal, including the entire colon. us Anca Cintron MD GI PROCEDURE ORDERABLES Fin al Result * Mammography Breast Screening Tomosynthesis Bilateral (08/28/2023 1:47 PM EDT) Anatomical Region Laterality Modality Breast Bilateral Mammography Impressions 09/04/2023 9:27 AM EST No mammographic evidence of malignancy. BI-RADS CATEGORY: Overall: 1 - Negative RECOMMENDATION: - Routine Screening Mammogram in 1 Year. Patient Lifetime Risk Score of Breast Malignancy: A risk score has not been calculated for this patient. This risk assessment is calculated using the Steph Risk Assessment model which may underestimate the lifetime risk of breast malignancy. COMMUNICATION: Computer-aided detection (CAD) and tomosynthesis were utilized by the radiologist in the interpretation of this examination. The results and recommendations will be sent to the patient in a printed lay language version of the imaging report. Narrative 09/04/2023 9:27 AM EST EXAM: Mammography Breast Screening with Tomosynthesis REASON FOR EXAM: Screening Mammogram HISTORY: Patient is 58 y.o. Hormone history includes control. Surgical and procedural history include hysterectomy (Hysterectomy from [employer]). COMPARISON STUDIES: Compared to: 12/09/2018 Mammography Breast Screening Tomosynthesis Bilateral at [facility] 12/10/2019 Mammography Breast Screening Tomosynthesis Bilateral at [facility] 12/27/2020 Mammography Breast Screening Tomosynthesis Bilateral at [facility] 06/08/2022 Mammography Breast Screening Tomosynthesis Bilateral at [facility] BREAST COMPOSITION: The breasts are heterogeneously dense, which may obscure small masses. FINDINGS: There are no suspicious masses, calcifications, or areas of architectural distortion. us Anca Cintron MD IMG BI PROCEDURES Final Res ult * Cytology (04/02/2014 12:00 AM EDT) 04/02/2014 04/05/2014 8:5 0 AM EDT Narrative [facility] - 04/07/2014 2:02 PM EDT [facility] MR #: [id number] [facility] GUILLERMINA [place]INA Michael [place], [place] [address] 1965 (Age: 49) FB Collect Date: 04/02/2014 00:00 Receipt Date: 04/05/2014 08:50 Page 1 DEPARTMENT OF PATHOLOGY AND LABORATORY MEDICINE CYTOPATHOLOGY REPORT Email: [email or web address] [id number] ATTENDING MD/Practitioner: Rani Cintron MD Service: [facility] Location: [facility] Reported: 04/07/2014 14:02 Collected: 04/02/2014 00:00 INTERPRETATION A. THIN PREP (VAGINAL): NEGATIVE FOR INTRAEPITHELIAL LESION OR MALIGNANCY. SHIFT IN KYLE SUGGESTIVE OF BACTERIAL VAGINOSIS. SATISFACTORY FOR EVALUATION. Slide examined with y prime ThinPrep Imaging System but manually screened for technical reasons. Electronically Signed Out By JOAQUIN Leonardo(ASCP) JOAQUIN Leonardo(ASCP) Cervical cytology is a screening test primarily for squamous cancers and precursors and has associated false negative and positive results. New technologies such as liquid based sampling may decrease but will not eliminate all false negative results. Regular screening and follow-up of unexplained clinical signs and symptoms are recommended to minimize false negative results. Please see the ASCCP website (www.asccp.org) for followup recommendations. If HPV testing was requested, correlation with the results is suggested (please call Microbiology at [phone] for results). CLINICAL INFORMATION: Menstrual History: Post-hysterectomy Date of Last Menstrual Period: 1998 Other Clinical Conditions: If ASCUS and > 24 years of age, HPV/DNA testing requested. Patient has a history of previous abnormal pap Date and code not provided: per Copath 1992 mod dys Negative pap or paps since at [facility]: x 7 SPECIMEN DESCRIPTION: A: THIN PREP (VAGINAL) THIN PREP PROCESS CELLULAR ENHANCEMENT ICD: 041.89 OTHER SPECIFIED BACTERIAL INFECTIONS F: A; RT IMAGE [id number] SNOMED CODES: A; [id number] In cases where a pathologist has signed out the report, the service has been rendered in part by a resident. The signing pathologist has performed and is responsible for the reported pathologic evaluation. Anca Cintron MD LAB PATHOLOGY ORDERABLES [facility] Result [employer] from Last 3 Months or Most Recently Relevant to Health Maintenance Insurance [facility] Care Teams Rocket Scientist Relationship Specialty Start Date End Date Elizabeth, [place] [address] PCP - General Family Medicine 07/27/25
[2025-08-25 07:25] VITALS: BMI 36.6
[2025-08-25] MEDS: METOPROLOL TARTRATE 50MG TABLET PO (07:43)
[2025-08-25] MEDS: IVABRADINE HCL 7.5MG TABLET PO (07:44)
[2025-08-25 07:46] VITALS: BP 143/89; PULSE 78; RESP 18; O2SAT 98
[2025-08-25 08:00] LABS: Chloride 100 mmol/L (98-107); Potassium 4.0 mmoL/L (3.5-5.1); Sodium 137 mmol/L (136-145)
[2025-08-25 08:03] LABS: Anion Gap 10.0 mEq/L (5-15); Blood Urea Nitrogen 9 mg/dl (7-17); Calcium 8.9 mg/dl (8.4-10.2); Carbon Dioxide 31 mmol/L (22.0-30.0); Creatinine Clearance Estimated 136 mL/min (50-200); Creatinine,Serum 0.70 mg/dl (0.52-1.04); Estimated Glomerular Filt Rate 86 ml/min (>60); GFR (African American) 104 ML/MIN (>60); Glucose 100 mg/dl (74-100)
--- NOTE | 2025-08-25 08:30 | CT_ITS ---
FINAL REPORT TECHNIQUE: Postcontrast axial images of the chest were performed in a CTA protocol. This study was performed with techniques to keep radiation doses as low as reasonably achievable, (ALARA). Individualized dose reduction technique using automated exposure control or adjustment of mA and/or kV according to the patient's size were employed. CLINICAL HISTORY: elevated d-dimer COMPARISON: 08/20/2024 FINDINGS: The heart is normal in size. No adenopathy is identified. No pleural or pericardial effusion is identified. The thoracic aorta is normal in caliber with no focal aneurysm or dissection identified. There is no filling defect to suggest pulmonary embolism. No lung infiltrate or mass is identified. The images of the upper abdomen demonstrate fatty infiltration of the liver. Tiny benign-appearing right renal cysts are present. IMPRESSION: No evidence for PE on this exam. Reviewed, Interpreted and Dictated by Roel Waterman MD Transcribed by Inna Jones Authenticated and [facility]
--- NOTE | 2025-08-25 08:30 | CT_ITS ---
APPROVED REPORT Felt Cutter: CLINICAL INDICATION Chest Pain TECHNIQUE Image Acquisition: A 128 slice MDCT scanner ([employer]) was used for data acquisition. A noncontrast coronary calcium scan was performed. A CT attenuation threshold of 130 Hounsfield units (HU) was used for the detection of calcium in contiguous voxels of 1 sq mm in area to be counted as individual lesions. Bolus tracking in the ascending aorta with a threshold of 180 HU was performed. Immediately afterwards, ECG synchronized cardiac CT was then performed from the cardiac base to apex using retrospective gating with ECG tube current modulation. A total of 85 mL of Isovue 370 mg/mL contrast medium was administered at 5 mL/sec followed by a saline flush using a biphasic injection protocol. A tube voltage of 120 KVp was used. The patient received the following medications prior to the cardiac CT. 50 mg of oral metoprolol 15 mg of intravenous metoprolol 0.8 mg of sublingual nitroglycerin The average heart rate at the time of acquisition was 61 bpm and regular. Image Reconstruction Transaxial images were reconstructed at 0.67 mm slide thickness. Data was reviewed interactively on an advanced workstation capable of 2 and 3-dimensional displays in all conventional reconstruction formats, including multiplanar reformations, maximum intensity projections, curved multiplanar reformations, and volume rendered reconstructions. When applicable, selected routine images describing the relevant coronary anatomy and pathology were saved and sent to PACS. Complications None Technical Quality Overall image quality was good. Coronary artery opacification was adequate. Total DLP (Dose-Length Product) is 1231.3 mGy-cm. The reported value represents the total of one or more individual components during the CT acquisition of this date and at this time, and as such, the same value may appear in more than one CT report depending on the interpreting/reporting physicians. COMPARISON None FINDINGS CT Coronary Calcium Scoring LMA (Left Main Artery) = 0 LAD (Left Anterior Descending) = 0 LCX (Left Coronary Circumflex) = 0 RCA (Right Coronary Artery) = 0 Total Calcium Score = 0 using the AJ-130 method. The interpretation of the calcium heart score is based on the following continuum*: 0 = no calcified plaque detected (risk of coronary artery disease is very low ??? less than 5%) 1-10 = calcium detected in extremely minimal levels (risk of coronary diseases is still low ??? less than 10%) 11-100 = mild levels of plaque detected with certainty (mild or minimal narrowing of heart arteries is likely) 101-400 = definite,at least moderate levels of plaque detected (relatively high risk of a heart attack within 3-5 years) >401-999 = extensive levels of plaque detected (high risk of heart attack, high levels of vascular disease are present, high likelihood of at least one significant coronary narrowing) *The calcium heart score quantifies the burden of coronary calcification/plaque in the coronary arteries. The calcium heart score is not able to evaluate the presence or burden of non-calcified (i.e. soft) plaque. There is no identifiable calcification in the aortic valve, mitral annulus or mitral valve, pericardium, or myocardium. Coronary CT Angiography The coronary arterial system is right dominant. Quantitative Stenosis Grading: Left Main (LM): The left main originates normally from the left sinus of Valsalva. The LM bifurcates into the left anterior descending artery and left circumflex artery. The LM is patent with no evidence of atherosclerosis. Left Anterior Descending (LAD) and Diagonal Branches: The LAD gives off 2 diagonal branch(es). The LAD and its branches are patent with no evidence of atherosclerosis. There is no evidence of LAD-myocardial bridge. Left Circumflex (LCX) and Obtuse Marginals (OM): The LCX gives off 1 Obtuse Marginal (OM) branch(es). The LCX and its branches are patent with no evidence of atherosclerosis. Right Coronary Artery (RCA): The RCA originates normally from the right sinus of Valsalva. The RCA gives off a posterior descending artery (PDA) and posterolateral (PL) branches. The RCA and its branches are patent with no evidence of atherosclerosis. Non-Coronary Cardiac Findings: Analysis of the left ventricular (LV) structure and function was performed after 3-D reconstruction of the LV from axial images, with user-corrected automatic contouring for assessment of LV volumes and user-defined reconstruction from oblique planes for measurement of 3-D cardiac structure and function. -The left ventricle systolic function is normal. -There is no left atrial appendage filling defect. Two right pulmonary veins and two left pulmonary veins drain normally into the left atrium. -No pericardial thickening or calcification. -Central and branch pulmonary arteries in the [id number] are unremarkable. -Thoracic aorta within the visualized thoracic aortic-branches in the [id number] is unremarkable. Extracardiac Structures No significant extra-cardiac findings. Note, however, that this study is focused on the cardiac findings. IMPRESSION -Absence of coronary calcification with an Agatston score = 0 using the AJ-130 method. -No evidence of significant flow-limiting atherosclerosis of the coronary arteries. -No evidence of coronary anomalies or myocardial bridges. -CAD-RADS 0. Management recommendations per ACC/AHA guidelines*, as clinically appropriate. *Recommendations: CAD RADS 0: Reassurance. Consider non-atherosclerotic causes of chest pain. CAD RADS 1: Consider non-atherosclerotic causes of chest pain. Consider preventive therapy and risk factor modification. CAD RADS 2: Consider non-atherosclerotic causes of chest pain. Consider preventive therapy and risk factor modification, particularly for patients with nonobstructive plaque in multiple segments. CAD RADS 3: Consider further functional testing. Consider symptom-guided anti-ischemic and preventive pharmacotherapy as well as risk factor modification per published guideline statements. CAD RADS 4A: Consider further functional testing or invasive coronary angiography with revascularization per published guideline statements. Consider symptom-guided anti-ischemic and preventive pharmacotherapy as well as risk factor modification per published guideline statements. CAD RADS 4B: Invasive coronary angiography recommended with revascularization per published guideline statements. Consider symptom-guided anti-ischemic and preventive pharmacotherapy as well as risk factor modification per published guideline statements. CAD RADS 5: Consider invasive angiography and/or viability assessment with revascularization per published guideline statements. Consider symptom-guided anti-ischemic and preventive pharmacotherapy as well as risk factor modification per published guideline statements. CRITICAL RESULT None COMMUNICATION Per this written report The coronary and cardiac findings of this CCTA were reviewed, reported, and signed by Jovi Velazquez MD (Dust [employer]or Treater) Conclusion Electronically signed by : Maddie Velazquez MD 08/28/2025 00:51:56
[2025-08-25 08:40] VITALS: BP 165/95; PULSE 60; RESP 18; O2SAT 98
[2025-08-25] MEDS: NITROGLYCERIN 0.4MG SL TABLET SL (08:40)
[2025-08-25 08:45] VITALS: BP 141/86; PULSE 61; RESP 18; O2SAT 95
[2025-08-25 08:50] VITALS: BP 147/88; PULSE 62; RESP 18; O2SAT 95
[2025-08-25 09:00] VITALS: BP 135/82; PULSE 61; RESP 17; O2SAT 97
[2025-08-25] MEDS: IOPAMIDOL-370 (76%);100ML BOTTLE 160 ML IV (09:05)
[2025-08-25] MEDS: 0.9 % SODIUM CHLORIDE 50 ML VIAL IV (09:05)
[2025-08-25] MEDS: SODIUM CHLORIDE 0.9% 10ML SYR (RAD ONLY) 10 ML IV (09:05)
== END 2025-08-25 09:10 | disposition home or self-care (01) ==
LOC: RAD 06:58
PROVIDERS: PCP Nurse Practitioner Family; Visit Provider Nurse Practitioner Family
DX: R07.9 Chest pain, unspecified (principal); R79.89 Other specified abnormal findings of blood chemistry; R53.83 Other fatigue
CPT/HCPCS: 71275; 75574; 80048; Q9967